=== PATIENT | male | born 1985 | race Caucasian/White ===

== ENCOUNTER 2018-12-09 08:01 | Inpatient (IN) | payer OTHER, SELFPAY ==
[2018-12-09] MEDS ORDERED: Lorazepam 2 MG/ML VIAL ONE ×5 (09:09→12:35)
[2018-12-09] MEDS ORDERED: Multivitamins, Adult 10 ML, Thiamine HCl 100 MG, Folic Acid 1 MG in Dextrose 5 %-0.45 %... IV SCH (09:15)
[2018-12-09 09:27] LABS: Hemoglobin 13.2 g/dL (14.0-18.0); Mean Corpuscular HGB CONC 33.8 g/dL (32.0-36.0); Mean Corpuscular Hemoglobin 36.7 pg (27.0-31.0); RBC Distribution Width 12.7 % (11.5-14.5); Red Blood Cell (RBC) Count 3.59 mill/uL (4.70-6.10); White Blood Cell (WBC) Count 7.6 thou/uL (4.8-10.8)
[2018-12-09 09:42] LABS: Acetaminophen Less than 6.0 mcg/mL (10.0-30.0); Alcohol Less than 10 mg/dL (Less than 10); CK (CPK) 1151 U/L (30-200); Salicylate Less than 8.0 mg/dL (15.0-30.0)
[2018-12-09 09:44] LABS: ALT (SGPT) 26 U/L (8-55); AST (SGOT) 121 U/L (5-34); Albumin 4.2 g/dL (3.5-5.0); Alkaline Phosphatase 121 U/L (40-150); Anion Gap 18 mmol/L (10-20); BUN (Urea Nitrogen) 8 mg/dL (8.9-20.6); Bilirubin, Total 2.4 mg/dL (0.2-1.2); Calc. Creatinine Clearance 0 mL/min (70-130); Calcium 8.6 mg/dL (7.8-10.44); Carbon Dioxide 26 mmol/L (22-29); Chloride 93 mmol/L (98-107); Estimated GFR-MDRD 76; Glucose 81 mg/dL (70-105); Protein, Total 7.2 g/dL (6.0-8.3); Sodium 134 mmol/L (136-145)
[2018-12-09 09:47] LABS: #Lymphocytes 0.7 thou/uL (1.20-3.40); #Monocytes 0.4 thou/uL (0.11-0.59); #Neutrophils 6.5 thou/uL (1.40-6.50); %Basophils 0.3 % (0.0-1.0); %Eosinophils 0.1 % (0.0-10.0); %Lymphocytes 9.4 % (21.0-51.0); %Neutrophils 85.2 % (42.0-75.0); MDiff Complete? YES; Macrocytosis SLIGHT = 6-15 cells (100X) (0-5/hpf); Platelet Count 76 thou/uL (130-400); Platelet Morphology Comment Appears Decreased
[2018-12-09 09:54] LABS: Potassium 2.7 mmol/L (3.5-5.1)
[2018-12-09] MEDS ORDERED: Potassium Chloride 20 MEQ in Premix Bag 1 BAG IVPB SCH (11:00)
[2018-12-09] MEDS ORDERED: Diazepam 5 MG TAB ONE (11:18)
[2018-12-09] MEDS ORDERED: Diazepam 5 MG TAB PO SCH (11:45)
[2018-12-09 12:15] LABS: Magnesium 1.2 mg/dL (1.6-2.6)
[2018-12-09 12:21] LABS: Lavender RECEIVED; Red RECEIVED
--- NOTE | 2018-12-09 13:10 | RAD ---
PORTABLE AP CHEST RADIOGRAPH: Date: 12-09-18 History: Altered mental status. Tremors. Comparison: 04-03-16 FINDINGS: The cardiac silhouette is magnified by projection. The pulmonary vasculature is within normal limits. The lungs are clear. The interstitial and alveolar opacities on the prior study have resolved. Lines and tubes have also been removed when compared to the prior exam. There is a radiopaque and metallic densities overlying the right lateral chest which is likely related to overlying artifact. No other findings. IMPRESSION: No acute cardiopulmonary process. POS: [facility]
--- NOTE | 2018-12-09 13:12 | CT ---
CT BRAIN: Date: 12-09-18 Provided Clinical History: Altered mental status. FINDINGS: Comparison is made with a study dated 08-06-15. The ventricular system appears normal in size and morphology. There is no evidence for intracranial h emorrhage or mass effect. The extracranial soft tissues and osseous structures demonstrate no acute a bnormality. IMPRESSION: No evidence for intracranial hemorrhage or mass effect. POS: [facility]
[2018-12-09] MEDS ORDERED: Magnesium Sulfate 3 GM in Sodium Chloride 0.9% 100 ML IVPB SCH (15:00)
[2018-12-09] MEDS: Sodium Chloride 0.9% 1,000 ML IV SCH ×2 (16:43→19:30)
[2018-12-09] MEDS: Multivitamins, Adult 10 ML, Folic Acid 1 MG, Thiamine HCl 100 MG in Dextrose 5 %-0.45 %... IV SCH (16:44)
[2018-12-09] MEDS: Diazepam 5 MG TAB PO PRN ×2 (19:22→23:13)
[2018-12-09] MEDS: Lorazepam 2 MG/ML VIAL SLOW IVP PRN ×2 (19:23→22:16)
[2018-12-09] MEDS: Famotidine/PF 20 mg/2ml Vial SLOW IVP SCH (20:31)
--- NOTE | 2018-12-10 00:10 | HP ---
CHIEF COMPLAINT: Abnormal behavior. HISTORY OF PRESENT ILLNESS: This patient is a 33-year-old male with a history of alcoholism who was admitted to this facility a couple of years prior with acute alcohol withdrawal. The patient apparently was sober for about a year and a half, but around [place], had some significant psychosocial stressors which caused him to go back to drinking. The patient has increased that of late drinking about 5 whisky drinks and a 12-pack of beer daily. The patient was subsequently brought to the emergency room today by his family because of altered behavior. It is unclear whether the patient was actually unconscious at some point or not. He appeared confused in the emergency department. The patient appeared to be having some hallucinations, grasping for things that were not present, and remained confused. In the emergency department, the patient became significantly tachycardic with a heart rate in the 170s and was subsequently given a large amount of benzodiazepines including Valium 10 mg and lorazepam a total of 9 mg which has settled the patient significantly, but unfortunately the patient is unable to give significant additional history at this time. The patient had some family present in the emergency room at some point. The patient apparently experienced a fall several days prior, apparently down some steps causing some bruising. REVIEW OF SYSTEMS: The review of systems was largely unobtainable given the patient's sedation. PAST MEDICAL HISTORY: Only notable for significant alcoholism. PAST SURGICAL HISTORY: None. SOCIAL HISTORY: The patient apparently is . He has a history of smoking a few cigarettes daily and occasional marijuana. Apparently, quit some time ago. He previously reported experimenting with other drugs, but never anything routinely. ALLERGIES: ERYTHROMYCIN CAUSES A RASH. MEDICATIONS: None. PHYSICAL EXAMINATION: VITAL SIGNS: Initial set of vital signs, BP is 115/92, pulse 162, respirations 23, temperature 98.9. Vital signs at time discharging from the emergency room, BP 124/94, pulse 120, respirations 23, O2 saturation 99% on room air. GENERAL APPEARANCE: The patient is sedated. He is lying supine. He is sleeping and snoring. He does appear to have some obstructive apnea at times as he is not moving any air with auscultation, but is having some chest movement. He is significantly sedated and not responsive to external stimuli. HEENT: The patient does not resist opening his eyes or shining of light to his pupils. His pupils are constricted, symmetric, and minimal reactivity. He has no OP lesions. Dry oral mucosa. NECK: Supple and symmetric without lymphadenopathy, JVD, or bruits. HEART: Regular rate and rhythm without murmurs, gallops, or rubs. LUNGS: Clear to auscultation bilaterally with good chest wall expansion and air exchange. ABDOMEN: Soft, nondistended. Positive bowel sounds. No masses. No organomegaly. EXTREMITIES: No edema. No cyanosis. No clubbing. SKIN: Warm and dry. The patient has some ecchymoses on the right lateral abdomen and the right tibial area of the lower extremity. LABORATORY DATA: White count 7.6, hemoglobin 13.2, platelets 76. Sodium 134, potassium 2.7, chloride 93, CO2 of 26, BUN 8, creatinine 1.13, glucose 81, magnesium is 1.2, total bilirubin 2.4, AST is 121, CK 1151, troponin 0.018, albumin 4.2, lipase 41. TSH 3.16. Salicylates less than 8. Acetaminophen less than 6. Plasma alcohol 10. Chest x-ray, negative. CT brain, negative. IMPRESSION AND PLAN: 1. Acute alcohol withdrawal. The patient has been through alcohol withdrawal in the past. He is back to drinking now. He has had significant dose of benzodiazepines in the emergency department. We will continue with p.r.n. benzodiazepines, continue daily banana bag. We will place him in the IMCU. I have discussed with Pulmonary Critical Care. 2. Hypokalemia. IV repletion. Recheck in the morning. 3. Hypomagnesemia. IV repletion. Recheck labs in the morning. 4. Elevated liver enzymes secondary to alcohol abuse. 5. Macrocytic anemia. The patient likely has B vitamin deficiency secondary to alcoholism, giving banana bag daily. 6. Thrombocytopenia, likely secondary to some chronic liver disease. We will continue to monitor. 7. Mild rhabdomyolysis secondary to a recent fall. The patient will have gentle hydration, but the numbers do not appear to be significant enough to be worrisome. Job ID: [id number]
[2018-12-10] MEDS: Lorazepam 2 MG/ML VIAL SLOW IVP PRN ×4 (00:23→20:08)
[2018-12-10] MEDS ORDERED: Lorazepam 2 MG/ML VIAL SLOW IVP SCH ×2 (01:02→11:00)
[2018-12-10] MEDS: Sodium Chloride 0.9% 1,000 ML IV SCH (02:30)
--- NOTE | 2018-12-10 03:26 | CON ---
DATE OF CONSULTATION: 12/09/2018 HISTORY OF PRESENT ILLNESS: Mr. Campbell is a 33-year-old male, who was admitted after his mother felt that he was not himself. He has a long history of heavy alcohol and substance abuse. He was agitated when he arrived and was having tremors. He has been drinking heavily every day until this morning, but he does not know that today is Friday. He drinks at least a quarter whiskey a day, he tells me plus beer. He has received Valium and Ativan in the emergency department, has finally calmed down. PAST MEDICAL HISTORY: Remarkable for hypertension. SOCIAL HISTORY: Heavy drinker as mentioned. Used to smoke marijuana according to records. He is a tobacco user. He admits that he drinks all day long. ALLERGIES: HE REPORTS ALLERGIES TO ERYTHROMYCIN. FAMILY HISTORY: Non contributory. REVIEW OF SYSTEMS: 10 point review of systems completed, unremarkable. MEDICATIONS: He is on no medications prior to admission. PHYSICAL EXAMINATION: GENERAL: He had a bloodshot eyes. He was evaluated in the emergency room. Focused on me for very long. VITAL SIGNS: Afebrile. Blood pressure 101/65, heart rate just over 100. HEENT: Pupils are equal. NECK: Supple without lymphadenopathy. LUNGS: Clear. HEART: Regular rhythm. No gallop. ABDOMEN: Soft and nontender. EXTREMITIES: Without clubbing, cyanosis, or edema. NEURO: Grossly nonfocal, but he cannot really cooperate with neuro exam. He does move all extremities equally. DIAGNOSTIC STUDIES: Chest radiograph is clear. LABORATORY DATA: White count 7.6, hemoglobin 13.2, and platelets 76. Sodium 134, potassium 2.7, chloride 93, bicarb 26, BUN 8, and creatinine 1.13. Magnesium and potassium low as expected with his alcoholism. He probably has very poor nutritional intake. Magnesium has been replaced and is up to 2.1. AST is 121, ALT is 26. IMPRESSION: 1. Alcohol withdrawal, blood alcohol is less than 10. 2. Alcoholic liver disease. 3. Thrombocytopenia secondary to alcoholism. 4. Hypomagnesemia and hypokalemia secondary to alcoholism. Admitted to the intermediate care unit. We will be happy to follow the other physicians caring for him. TIME SPENT: This was a 70-minute consult, with greater than 50% of the time was spent on the unit coordinating care. Job ID: [id number] [facility]
[2018-12-10] MEDS: Diazepam 5 MG TAB PO PRN (03:52)
[2018-12-10] MEDS ORDERED: Diazepam 5 MG TAB PO PRN (04:00)
[2018-12-10 04:45] LABS: #Eosinphils 0.1 thou/uL (0.0-0.7); #Lymphocytes 0.9 thou/uL (1.20-3.40); #Monocytes 0.4 thou/uL (0.11-0.59); #Neutrophils 4.5 thou/uL (1.40-6.50); %Basophils 0.4 % (0.0-1.0); %Eosinophils 1.1 % (0.0-10.0); %Lymphocytes 15.1 % (21.0-51.0); %Neutrophils 76.4 % (42.0-75.0); Hemoglobin 11.3 g/dL (14.0-18.0); Mean Corpuscular HGB CONC 32.3 g/dL (32.0-36.0); Mean Platelet Volume 8.1 fL (7.4-10.4); Platelet Count 82 thou/uL (130-400); RBC Distribution Width 12.8 % (11.5-14.5); Red Blood Cell (RBC) Count 3.14 mill/uL (4.70-6.10); White Blood Cell (WBC) Count 5.9 thou/uL (4.8-10.8)
[2018-12-10 05:05] LABS: Anion Gap 19 mmol/L (10-20); BUN (Urea Nitrogen) 7 mg/dL (8.9-20.6); Calc. Creatinine Clearance 194 mL/min (70-130); Calcium 7.3 mg/dL (7.8-10.44); Carbon Dioxide 19 mmol/L (22-29); Chloride 99 mmol/L (98-107); Estimated GFR-MDRD Greater than 90; Glucose 70 mg/dL (70-105); Potassium 2.8 mmol/L (3.5-5.1); Sodium 134 mmol/L (136-145)
[2018-12-10] MEDS: Potassium Chloride 20 MEQ in Premix Bag 1 BAG IVPB SCH ×2 (06:19→08:54)
[2018-12-10] MEDS ORDERED: Potassium Chloride 40 MEQ in Premix Bag 1 BAG IVPB SCH (07:15)
[2018-12-10] MEDS ORDERED: Potassium Chloride 20 MEQ in Premix Bag 1 BAG IVPB SCH (07:30)
[2018-12-10] MEDS: Famotidine/PF 20 mg/2ml Vial SLOW IVP SCH ×2 (08:55→21:50)
[2018-12-10] MEDS: Enoxaparin Sodium 40 MG/0.4 ML SYRINGE SC SCH (08:55)
[2018-12-10] MEDS ORDERED: Haloperidol Lactate 5 MG/ML VIAL IM SCH (11:00)
[2018-12-10] MEDS ORDERED: Propofol 1,000 MG/100 ML VIAL IV ONE (13:27)
[2018-12-10] MEDS ORDERED: Vecuronium 10 MG VIAL ONE (14:21)
[2018-12-10 15:01] LABS: Actual Bicarbonate (HCO3a) 21.8 mEq/L (22-28); Base Excess (BEa) -1.4 mEq/L (-2.0 to +3.0); CO2 Tension 31.7 mmHg (35.0-45.0); Calcium, Ionized 1.01 mmol/L (1.12-1.30); Hemoglobin (Hb) 11.5 g/dL (14.0-18.0); O2 Tension (PaO2) 129.3 mmHg (80.0-100.0); Potassium - ABG Lab 2.76 mmol/L (3.70-5.30); pH, Arterial 7.46 (7.35-7.45)
[2018-12-10 15:04] LABS: ALV-art Gradient 44.975 (0-20); Puncture Site LRA
--- NOTE | 2018-12-10 15:42 | RAD ---
CHEST 1 VIEW: INDICATION: History of intubation. COMPARISON: Prior exam dated 12/09/2018. FINDINGS: The patient has been intervally intubated with ET tube tip seen at the level of the thoracic inlet. Gastric catheter projects beyond the left hemidiaphragm into the region of the fundus. The lungs are clear. Heart size is normal. No pleural effusion or pneumothorax is evident. IMPRESSION: Intubation and gastric catheter placement. No definite acute cardiopulmonary abnormality. POS: [facility]
[2018-12-10] MEDS: Multivitamins, Adult 10 ML, Folic Acid 1 MG, Thiamine HCl 100 MG in Dextrose 5 %-0.45 %... IV SCH (15:55)
[2018-12-10] MEDS ORDERED: Vecuronium 10 MG VIAL IV SCH (17:00)
[2018-12-10] MEDS ORDERED: Propofol 1,000 MG/100 ML VIAL IV SCH ×2 (17:00→17:15)
--- NOTE | 2018-12-10 17:09 | PRG ---
DATE OF SERVICE: 12/10/2018 SUBJECTIVE: Sea Campbell, in spite of high doses of benzodiazepines, continues to be very agitated all over the bed, requiring restraints, having intermittent tachycardia up to a rate of 190. I have recommended him to transfer to critical care unit for intubation and deep sedation. He was transferred over to Critical Care. His blood pressure was in the 120s to 140s at that time. He was given 20 mg of etomidate once we were ready for intubation. A bite block was placed in his mouth. Bronchoscope was advanced and his vocal cords were visualized. Bronchoscope was advanced through his cords and he was endotracheally intubated. The tube was secured above the main clemencia. The scope was withdrawn. He was then sedated with 100 mg of propofol and paralyzed with 10 mg of vecuronium. We started a generous dose of propofol drip to hopefully get him through his alcohol withdrawal. Chest radiograph shows no infiltrates and the orogastric tube in his stomach. He can be started on feeds today. He was connected to mechanical ventilation. Blood gas shows pH 7.46, pCO2 of 31, pO2 of 129 on 30% with a rate of 14, tidal volume of 500. IMPRESSION: Severe alcohol withdrawal/delirium tremens. PLAN: Mechanical ventilation and sedation until he is through the alcohol withdrawal. CRITICAL CARE TIME: 35 minutes. Job ID: [id number]
--- NOTE | 2018-12-10 18:01 | PDOC.PN ---
- Subjective Encounter Start Date: 12/10/18 Encounter Start Time: 11:20 Patient has had undulating LOC and delerium. Requiring a significant amount of benzodiazepine and sedation. Seeing people in the room who are not there. Pulled out multiple IV's and required restraints. - Objective Resuscitation Status - Order Detail: 12/09/18 14:31 Resuscitation Status Routine Resuscitation Status: FULL: Full Resuscitation Vital Signs & Weight: Vital Signs (12 hours) Temp Pulse Resp Pulse Ox 12/10/18 16:00 14 12/10/18 14:39 132 H 12/10/18 14:30 99 12/10/18 14:15 99.2 F 14 99 12/10/18 11:45 99.6 F 12/10/18 07:35 98 12/10/18 07:06 98.3 F Weight Admit Weight 138 lb 14.259 oz Weight 189 lb Most Recent Monitor Data Heart Rate from ECG 94 NIBP 94/56 NIBP BP-Mean 68 Respiration from ECG 14 SpO2 100 I&O: 12/09/18 12/10/18 12/11/18 06:59 06:59 06:59 Output Total 700 385 Balance -700 -385 Result Diagrams: 12/10/18 04:29 12/10/18 04:29 Phys Exam - Physical Examination Constitutional: NAD Respiratory: no wheezing, no rales, no rhonchi, clear to auscultation bilateral Cardiovascular: RRR, no significant murmur, no rub HR 170's with any signif movement. Gastrointestinal: soft, non-tender, no distention, positive bowel sounds Musculoskeletal: no edema Deviation from normal: Intermittently agitated and delerious. Generally calm at exam. Dx/Plan (1) Acute hypoxemic respiratory failure Code(s): J96.01 - ACUTE RESPIRATORY FAILURE WITH HYPOXIA Status: Acute Comment: extubated 04/03 (2) Hypokalemia Code(s): E87.6 - HYPOKALEMIA Status: Acute (3) Severe alcohol withdrawal delirium Code(s): F10.231 - ALCOHOL DEPENDENCE WITH WITHDRAWAL DELIRIUM Status: Acute (4) Chronic alcoholism Code(s): F10.20 - ALCOHOL DEPENDENCE, UNCOMPLICATED Status: Chronic - Plan * Continuing BZD's, B-vitamins * May need more aggressive sedation and intubation through more severe stages of DT's.
[2018-12-10] MEDS ORDERED: Propofol 1,000 MG/100 ML VIAL IV PRN (21:11)
[2018-12-10] MEDS ORDERED: Morphine 2 MG/ML SYRINGE SLOW IVP PRN (21:11)
[2018-12-10] MEDS ORDERED: Fentanyl BOLUS 250 ML IVPB PRN (21:11)
[2018-12-10] MEDS ORDERED: DISCONTINUE PREVIOUS NARCOTIC PAIN MEDICATIONS AND BENZODIAZEPINES FS SCH (21:11)
[2018-12-10] MEDS ORDERED: Propofol BOLUS 1,000 MG/100 ML VIAL IV PRN (21:11)
[2018-12-10] MEDS: fentaNYL Citrate/PF 2,000 MCG in Sodium Chloride 0.9% 60 ML IV SCH (21:35)
[2018-12-10] MEDS: Propofol 1,000 MG/100 ML VIAL IV PRN (21:52)
[2018-12-11] MEDS: Acetaminophen 325 MG TAB PO PRN ×3 (02:28→16:51)
[2018-12-11 06:53] LABS: ALV-art Gradient 111.525 (0-20); Actual Bicarbonate (HCO3a) 24.3 mEq/L (22-28); Base Excess (BEa) 1.4 mEq/L (-2.0 to +3.0); CO2 Tension 32.7 mmHg (35.0-45.0); Calcium, Ionized 1.01 mmol/L (1.12-1.30); Carboxyhemoglobin (COHb) 0.4 gm% (0.0-3.0); Hemoglobin (Hb) 11.3 g/dL (14.0-18.0); O2 Tension (PaO2) 61.5 mmHg (80.0-100.0); Potassium - ABG Lab 2.66 mmol/L (3.70-5.30); Puncture Site RRA; pH, Arterial 7.49 (7.35-7.45)
[2018-12-11] MEDS: Propofol 1,000 MG/100 ML VIAL IV PRN ×2 (07:00→11:55)
[2018-12-11] MEDS: Lorazepam 2 MG/ML VIAL SLOW IVP PRN ×6 (08:16→21:47)
[2018-12-11] MEDS: Famotidine/PF 20 mg/2ml Vial SLOW IVP SCH ×2 (08:24→21:47)
--- NOTE | 2018-12-11 09:43 | PRG ---
DATE OF SERVICE: 12/11/2018 SUBJECTIVE: Sea Campbell is sedated and mechanically ventilated. OBJECTIVE: VITAL SIGNS: He is afebrile, heart rate 76, blood pressure 120/73, respiratory rate 17. LUNGS: Clear. HEART: Regular rhythm. S1 and S2 normal. ABDOMEN: Soft and nontender. EXTREMITIES: Without clubbing, cyanosis, or edema. LABORATORY DATA: He had no lab today. I have ordered lab. IMPRESSION: Status post intubation for severe delirium tremens, not responding to significant doses of benzodiazepines. He appears to be stable at this point in time. He has some mild resting tachycardia as expected. Continue with supportive care. He probably will be through the window of alcohol withdrawal for another 2 to 3 days. Critical care time is 35 minutes. Job ID: [id number] [facility]
[2018-12-11 11:11] LABS: #Basophils 0.1 thou/uL (0.0-0.2); #Lymphocytes 0.8 thou/uL (1.20-3.40); #Monocytes 0.3 thou/uL (0.11-0.59); #Neutrophils 2.5 thou/uL (1.40-6.50); %Basophils 1.6 % (0.0-1.0); %Eosinophils 0.9 % (0.0-10.0); %Lymphocytes 22.7 % (21.0-51.0); %Monocytes 8.2 % (0.0-10.0); %Neutrophils 66.6 % (42.0-75.0); Hemoglobin 11.8 g/dL (14.0-18.0); Mean Corpuscular HGB CONC 32.2 g/dL (32.0-36.0); Mean Corpuscular Hemoglobin 36.2 pg (27.0-31.0); Platelet Count 104 thou/uL (130-400); Red Blood Cell (RBC) Count 3.26 mill/uL (4.70-6.10); White Blood Cell (WBC) Count 3.7 thou/uL (4.8-10.8)
[2018-12-11 11:26] LABS: Anion Gap 14 mmol/L (10-20); BUN (Urea Nitrogen) 5 mg/dL (8.9-20.6); Calc. Creatinine Clearance 220 mL/min (70-130); Calcium 7.5 mg/dL (7.8-10.44); Carbon Dioxide 22 mmol/L (22-29); Chloride 100 mmol/L (98-107); Estimated GFR-MDRD Greater than 90; Glucose 81 mg/dL (70-105); Sodium 133 mmol/L (136-145)
[2018-12-11 11:30] LABS: Potassium 2.8 mmol/L (3.5-5.1)
[2018-12-11] MEDS: fentaNYL Citrate/PF 2,000 MCG in Sodium Chloride 0.9% 60 ML IV SCH (11:30)
[2018-12-11] MEDS: Enoxaparin Sodium 40 MG/0.4 ML SYRINGE SC SCH (11:55)
[2018-12-11 12:04] LABS: Phosphorus 1.5 mg/dL (2.3-4.7)
[2018-12-11] MEDS: Piperacillin/Tazobactam 3.375 GM in Sodium Chloride 0.9% 100 ML IVPB SCH ×3 (12:07→23:35)
[2018-12-11] MEDS ORDERED: Magnesium Sulfate 4 GM in Sodium Chloride 0.9% 250 ML 250 ML IVPB SCH (12:30)
[2018-12-11] MEDS ORDERED: Potassium Phosphate 30 MMOL in Sodium Chloride 0.9% 500 ML IVPB SCH (12:30)
[2018-12-11 13:23] LABS: Bilirubin Moderate (Negative); Blood, Urine Small (Negative); Clarity TURBID (Clear); Glucose, Urine (Dipstick) Negative (Negative); Leukocyte Large (Negative); Nitrite Positive (Negative); Protein, Urine (Dipstick) 30 mg/dL (Neg-Trace); Specific Gravity, Urine 1.024 (1.002-1.036); pH, Urine 5.5 (5.0-9.0)
[2018-12-11 13:25] LABS: Bacteria/HPF 4+ HPF (None Seen); Pathc Cast-AUWi Flag 1.05 (0-2.49); Squamous Epithelial None Seen HPF (0-3)
[2018-12-11 13:29] LABS: Yeast-AUWi Flag 116.8 (0-25.0)
[2018-12-11 13:38] LABS: Hyaline Casts/LPF 0-3 HYALINE CAST LPF (0-3 Hyaline); Renal Epithelial 0-3 HPF (0-3)
[2018-12-11] MEDS: Multivitamins, Adult 10 ML, Folic Acid 1 MG, Thiamine HCl 100 MG in Dextrose 5 %-0.45 %... IV SCH (14:41)
[2018-12-11] MEDS ORDERED: Sodium Chloride 0.9% 500 ML IV SCH (17:15)
[2018-12-11] MEDS: Lactated Ringer's 1,000 ML IV SCH ×2 (18:10→21:49)
--- NOTE | 2018-12-11 23:00 | PDOC.PN ---
- Subjective Encounter Start Date: 12/11/18 Encounter Start Time: 14:45 Intubated. - Objective Resuscitation Status - Order Detail: 12/09/18 14:31 Resuscitation Status Routine Resuscitation Status: FULL: Full Resuscitation Vital Signs & Weight: Vital Signs (12 hours) Temp Pulse Resp BP Pulse Ox 12/11/18 22:00 14 12/11/18 20:00 99.2 F 20 79/43 L 97 12/11/18 18:00 103.2 F H 14 12/11/18 17:00 103.0 F H 12/11/18 16:10 93 L 12/11/18 16:00 102.1 F H 16 12/11/18 15:00 102.0 F H 12/11/18 14:00 14 12/11/18 13:00 102.7 F H 12/11/18 12:52 130 H 118/68 12/11/18 12:00 13 115/77 Weight Admit Weight 189 lb Weight 189 lb Most Recent Monitor Data Heart Rate from ECG 79 NIBP 76/48 NIBP BP-Mean 57 Respiration from ECG 14 SpO2 95 I&O: 12/10/18 12/11/18 12/12/18 06:59 06:59 06:59 Intake Total 208.1 3962.9 Output Total 700 675 686 Balance -700 -466.9 3276.9 Result Diagrams: 12/11/18 10:57 12/11/18 10:57 Phys Exam - Physical Examination Constitutional: NAD Intubated. Will awaken with modest stim. Respiratory: no wheezing, no rales, no rhonchi Cardiovascular: RRR, no significant murmur, no rub Gastrointestinal: soft, non-tender, no distention, positive bowel sounds Musculoskeletal: no edema Sedated. Awakens and still a little agitated. Dx/Plan (1) Acute hypoxemic respiratory failure Code(s): J96.01 - ACUTE RESPIRATORY FAILURE WITH HYPOXIA Status: Acute Comment: extubated 04/03 (2) Hypokalemia Code(s): E87.6 - HYPOKALEMIA Status: Acute (3) Severe alcohol withdrawal delirium Code(s): F10.231 - ALCOHOL DEPENDENCE WITH WITHDRAWAL DELIRIUM Status: Acute (4) Chronic alcoholism Code(s): F10.20 - ALCOHOL DEPENDENCE, UNCOMPLICATED Status: Chronic (5) Tachycardia Code(s): R00.0 - TACHYCARDIA, UNSPECIFIED Status: Acute (6) Fever Code(s): R50.9 - FEVER, UNSPECIFIED Status: Acute - Plan * Remains intubated. * Sedated. Transitioning to Precedex and weaning propafol to manage relative hypotension. * Continue to maintain sedation and control airway until the DT's resolve. * New onset of fever. Zosyn added. Risk for aspiration pneumonia.
[2018-12-11] MEDS: Sodium Chloride 0.9% 1,000 ML IV SCH (23:36)
[2018-12-12 05:02] LABS: Anion Gap 14 mmol/L (10-20); BUN (Urea Nitrogen) 9 mg/dL (8.9-20.6); Calc. Creatinine Clearance 166 mL/min (70-130); Calcium 6.6 mg/dL (7.8-10.44); Carbon Dioxide 17 mmol/L (22-29); Chloride 107 mmol/L (98-107); Estimated GFR-MDRD Greater than 90; Glucose 85 mg/dL (70-105); Magnesium 1.6 mg/dL (1.6-2.6); Potassium 3.8 mmol/L (3.5-5.1); Sodium 134 mmol/L (136-145)
[2018-12-12] MEDS: Lorazepam 2 MG/ML VIAL SLOW IVP PRN ×8 (05:05→21:47)
[2018-12-12 05:06] LABS: Phosphorus 3.2 mg/dL (2.3-4.7)
[2018-12-12] MEDS: Piperacillin/Tazobactam 3.375 GM in Sodium Chloride 0.9% 100 ML IVPB SCH ×4 (05:07→23:21)
[2018-12-12 05:14] LABS: Band 32 % (5-11); Eosinophils 1 % (0-10); Hemoglobin 11.7 g/dL (14.0-18.0); Lymphocytes 17 % (21-51); MDiff Complete? YES; Macrocytosis SLIGHT = 6-15 cells (100X) (0-5/hpf); Mean Corpuscular HGB CONC 33.3 g/dL (32.0-36.0); Mean Corpuscular Hemoglobin 37.5 pg (27.0-31.0); Mean Platelet Volume 6.8 fL (7.4-10.4); Metamyelocyte 3 % (0-0); Monocytes 8 % (0-10); Neutrophil 37 % (42-75); Platelet Count 125 thou/uL (130-400); Platelet Morphology Comment Appears Decreased; RBC Distribution Width 12.7 % (11.5-14.5); Reactive Lymphocytes 2 % (0-10); Red Blood Cell (RBC) Count 3.13 mill/uL (4.70-6.10); White Blood Cell (WBC) Count 6.2 thou/uL (4.8-10.8)
--- NOTE | 2018-12-12 07:49 | RAD ---
CHEST 1 VIEW: Date: 12/12/18 HISTORY: Dyspnea. Follow-up. COMPARISON: 12/10/18. FINDINGS: Cardiac silhouette is magnified by projection. Pulmonary vasculature upper limits of normal. Mild dean ateral perihilar infiltrates have developed with more prominent consolidation in the right upper lobe , including air bronchograms. Mediastinum remains midline. Lines and tubes are unchanged in position. No evidence of pneumothorax. IMPRESSION: Bilateral perihilar and right upper lobe infiltrates. Clinical correlation regarding other signs and symptoms of developing pneumonitis versus only pulmonary edema is required. POS: [facility]
[2018-12-12] MEDS: Famotidine/PF 20 mg/2ml Vial SLOW IVP SCH ×2 (08:29→21:47)
[2018-12-12] MEDS: Enoxaparin Sodium 40 MG/0.4 ML SYRINGE SC SCH (08:31)
--- NOTE | 2018-12-12 09:18 | PRG ---
DATE OF SERVICE: 12/12/2018 SERVICE: Pulmonary Medicine. INTERVAL HISTORY: Overnight, the patient spiked a temperature to 103. We pancultured him. E. coli is already growing. He was empirically started on Zosyn, which we will continue. He has been agitated through the day. He denies any current chest pain, fevers, or chills. He required significant amount of sedation to stay comfortable however. Without stimulation, he falls back to sleep within 3 seconds. PHYSICAL EXAMINATION: VITAL SIGNS: Current temperature of 100.9, T-max 103.2, pulse 95, blood pressure 94/57, respirations 18, saturation 93% on 41% FiO2 and a PEEP of 5. GENERAL: The patient is intubated and sedated. HEENT: Normal normocephalic, atraumatic. Sclerae white. Conjunctivae pink. Oral mucosa is moist without lesions. LUNGS: Decent air entry. No prolonged expiratory phase or rhonchi appreciated. No wheezing. HEART: Normal rate, regular. ABDOMEN: Soft, nontender nondistended. Bowel sounds are positive. MUSCULOSKELETAL: No cyanosis or clubbing. EXTREMITIES: No pitting in the bilateral lower extremities. NEUROLOGIC: Grossly nonfocal. LABORATORY DATA: WBC 6.2, hemoglobin 11.3, platelets 125,000 and rebounding. Neutrophils are 37% on top of 32% bands. Basic metabolic profile is essentially unremarkable. His magnesium has improved to 1.6, and phosphorus has improved to 3.2. Blood cultures x2 and respiratory cultures are unremarkable. IMAGING: Chest x-ray demonstrates bilateral perihilar and right upper lobe infiltrate. Endotracheal tube and central line are in in good position. ASSESSMENT: 1. Acute hypoxic respiratory failure. 2. Community-acquired pneumonia secondary to likely gram-negative veronique. 3. Alcohol abuse. 4. Metabolic encephalopathy. 5. Severe sepsis. 6. Delirium tremens, stabilizing. DISCUSSION AND PLAN: We will continue our Precedex for sedation. This will be weaned away as tolerated. I have made multiple adjustments to his ventilator in order to improve on his very significant dyssynchrony. He seems to like pressure control ventilation the most. Pulmonary Critical Care will continue to follow along, but at this point, he is not ready for extubation. We will continue our empiric antibiotics and direct our sensitivities to anything that we culture in the sputum. The predominant organisms were Streptococcus, and gram-negative rods. Zosyn should cover this. Moderate gram-positive cocci and clusters were also noted. As such, I will empirically initiate vancomycin for the time being, though he has no reason to have a sensitive or a resistant organism. CRITICAL CARE TIME: 30 minutes. Job ID: [id number]
[2018-12-12] MEDS ORDERED: Vancomycin HCl 1.5 GM in Sodium Chloride 0.9% 250 ML 300 ML IVPB SCH (10:00)
[2018-12-12] MEDS ORDERED: Magnesium Sulfate 4 GM in Sodium Chloride 0.9% 250 ML 250 ML IVPB SCH (10:30)
--- NOTE | 2018-12-12 14:01 | PDOC.PN ---
- Subjective Encounter Start Date: 12/12/18 Encounter Start Time: 10:00 Intubated and sedated. - Objective Resuscitation Status - Order Detail: 12/09/18 14:31 Resuscitation Status Routine Resuscitation Status: FULL: Full Resuscitation Vital Signs & Weight: Vital Signs (12 hours) Temp Pulse Resp BP Pulse Ox 12/12/18 13:06 85 92/52 L 12/12/18 12:00 99.9 F H 17 12/12/18 10:17 90 98/55 L 12/12/18 10:00 0 L 15 12/12/18 09:16 98 104/65 12/12/18 08:00 15 12/12/18 07:17 108 H 112/62 12/12/18 07:16 91 L 12/12/18 07:00 100.9 F H 12/12/18 06:00 23 H 12/12/18 04:00 100.0 F H 26 H 107/78 12/12/18 02:00 17 Weight Admit Weight 189 lb Weight 189 lb Most Recent Monitor Data Heart Rate from ECG 83 NIBP 92/52 NIBP BP-Mean 65 Respiration from ECG 13 SpO2 95 I&O: 12/11/18 12/12/18 12/13/18 06:59 06:59 06:59 Intake Total 208.1 8187.2 0 Output Total 675 1031 300 Balance -466.9 7156.2 -300 Result Diagrams: 12/12/18 04:28 12/12/18 04:28 Phys Exam - Physical Examination Constitutional: NAD Intubated and sedated. Respiratory: no wheezing, no rhonchi Right sided rales Cardiovascular: RRR, no significant murmur, no rub Gastrointestinal: soft, no distention, positive bowel sounds Musculoskeletal: no edema Psychiatric: normal affect, A&O x 3 Dx/Plan (1) Acute hypoxemic respiratory failure Code(s): J96.01 - ACUTE RESPIRATORY FAILURE WITH HYPOXIA Status: Acute Comment: extubated 04/03 (2) Hypokalemia Code(s): E87.6 - HYPOKALEMIA Status: Acute (3) Severe alcohol withdrawal delirium Code(s): F10.231 - ALCOHOL DEPENDENCE WITH WITHDRAWAL DELIRIUM Status: Acute (4) Chronic alcoholism Code(s): F10.20 - ALCOHOL DEPENDENCE, UNCOMPLICATED Status: Chronic (5) Tachycardia Code(s): R00.0 - TACHYCARDIA, UNSPECIFIED Status: Acute (6) Fever Code(s): R50.9 - FEVER, UNSPECIFIED Status: Acute (7) Pneumonia Code(s): J18.9 - PNEUMONIA, UNSPECIFIED ORGANISM Status: Acute Comment: on Atbx (8) UTI (urinary tract infection) Status: Acute (9) Acute metabolic encephalopathy Code(s): G93.41 - METABOLIC ENCEPHALOPATHY Status: Acute - Plan * Pulm CC following and managing vent. * Has pneumonia with Staph aureus in sputum * Has UTI with Staph sp in urine. * Continue Zosyn. Vanc added as well. * Has some growth of GNR - Zosyn. * Continue sedation and vent support until he clears the DT's better.
[2018-12-12] MEDS: fentaNYL Citrate/PF 2,000 MCG in Sodium Chloride 0.9% 60 ML IV SCH (15:07)
[2018-12-12] MEDS: Propofol 1,000 MG/100 ML VIAL IV PRN ×2 (15:20→22:39)
[2018-12-12] MEDS: Vancomycin HCl 1.5 GM in Sodium Chloride 0.9% 250 ML 300 ML IVPB SCH (17:25)
[2018-12-12] MEDS ORDERED: Vancomycin HCl 1 GM in Premix Bag 1 BAG IVPB SCH (21:00)
[2018-12-12] MEDS: Sodium Chloride 0.9% 1,000 ML IV SCH (23:21)
[2018-12-13] MEDS: Vancomycin HCl 1.5 GM in Sodium Chloride 0.9% 250 ML 300 ML IVPB SCH (01:25)
[2018-12-13] MEDS: Lorazepam 2 MG/ML VIAL SLOW IVP PRN ×8 (01:26→19:41)
[2018-12-13 05:09] LABS: Anion Gap 13 mmol/L (10-20); BUN (Urea Nitrogen) 8 mg/dL (8.9-20.6); Calc. Creatinine Clearance 213 mL/min (70-130); Carbon Dioxide 17 mmol/L (22-29); Chloride 111 mmol/L (98-107); Estimated GFR-MDRD Greater than 90; Glucose 90 mg/dL (70-105); Potassium 3.9 mmol/L (3.5-5.1); Sodium 137 mmol/L (136-145)
[2018-12-13 05:47] LABS: Band 36 % (5-11); Eosinophils 2 % (0-10); Hemoglobin 10.2 g/dL (14.0-18.0); Lymphocytes 10 % (21-51); MDiff Complete? YES; Macrocytosis SLIGHT = 6-15 cells (100X) (0-5/hpf); Mean Corpuscular HGB CONC 33.5 g/dL (32.0-36.0); Mean Corpuscular Hemoglobin 37.3 pg (27.0-31.0); Mean Platelet Volume 8.1 fL (7.4-10.4); Metamyelocyte 4 % (0-0); Monocytes 9 % (0-10); Neutrophil 39 % (42-75); Platelet Count 132 thou/uL (130-400); Platelet Morphology Comment Appears Adequate; RBC Distribution Width 12.9 % (11.5-14.5); Red Blood Cell (RBC) Count 2.74 mill/uL (4.70-6.10); White Blood Cell (WBC) Count 6.5 thou/uL (4.8-10.8)
[2018-12-13] MEDS: Piperacillin/Tazobactam 3.375 GM in Sodium Chloride 0.9% 100 ML IVPB SCH (06:02)
[2018-12-13] MEDS: Enoxaparin Sodium 40 MG/0.4 ML SYRINGE SC SCH (09:24)
[2018-12-13] MEDS: Thiamine 100 MG TAB PO SCH (09:24)
[2018-12-13] MEDS: Folic Acid 1 MG TAB PO SCH (09:24)
[2018-12-13] MEDS: Famotidine/PF 20 mg/2ml Vial SLOW IVP SCH ×2 (09:24→21:45)
--- NOTE | 2018-12-13 09:47 | PRG ---
DATE OF SERVICE: 12/13/2018 SERVICE: Pulmonary Medicine. INTERVAL HISTORY: The patient is doing really well from a mentation standpoint. He got started on Precedex yesterday. With this medication, his heart rate is down, his blood pressure is actually a little bit low. That being said, he does not have any end-organ damage that accompanies that. He cannot provide any additional elements of the history at this point. He is more cool, calm, and collected. He is still requiring some p.r.n. doses of Ativan, but no longer on propofol or fentanyl. Nursing reports no overnight events. PHYSICAL EXAMINATION: VITAL SIGNS: Afebrile, pulse 87, blood pressure 114/68, respirations 15, and saturation 99% on 27% FiO2 and a PEEP of 5. GENERAL: The patient is intubated and sedated. HEENT: Normocephalic and atraumatic. Sclerae white. Conjunctivae pink. Oral mucosa is moist without lesions. LUNGS: Decent air entry. There is no prolonged expiratory phase. Dependent crackles are present. Some rhonchi are there, but clear with cough. HEART: Normal rate, regular. ABDOMEN: Soft, nontender, and nondistended. Bowel sounds are hypoactive. GENITOURINARY: Marshall catheter in place. NEUROLOGIC: Grossly nonfocal. LABORATORY DATA: WBC 6.5, hemoglobin 10.2, and platelets 132,000, beautifully responding. Basic metabolic profile is essentially unremarkable. The chloride is 111, sodium 137 and gently up-trending. Creatinine is stable at 0.61, calcium 7.0 and improving. Urine culture is growing staph species. Sputum culture is also growing Staph aureus. This is a pansensitive organism. That being said, it is resistant to piperacillin. Blood cultures x2 are otherwise unremarkable. ASSESSMENT: 1. Acute hypoxic respiratory failure. 2. Community-acquired pneumonia secondary to methicillin-susceptible Staphylococcus aureus. 3. Alcohol abuse. 4. Metabolic encephalopathy. 5. Severe sepsis. 6. Delirium tremens. 7. Urinary tract infection secondary to staph. DISCUSSION AND PLAN: It is likely that the only way that the staph got to the urine was through hematogenous spread. As such, I do suspect that the patient had at least transient bacteremia secondary to Staph aureus. I am going to change the antibiotics up ever so slightly in order to cover the offending organism and currently treat it as though it was a hematogenous event. Echocardiogram will be performed to see whether or not there is any valvular vegetations, although I doubt that is the case. At this point, the only thing that precludes extubation is his mentation. This has improved significantly on Precedex, but he still requires a significant dose in order to keep him comfortable. Pulmonary Critical Care will continue to follow along. We will repeat a chest x-ray in the morning. Several adjustments have been made to the ventilator in order to return more work of breathing over to the patient. CRITICAL CARE TIME: 30 minutes. Job ID: [id number]
[2018-12-13] MEDS: Sodium Chloride 0.45% 1,000 ML IV SCH (10:15)
[2018-12-13] MEDS ORDERED: Senokot 8.6 MG TAB PO SCH (10:15)
[2018-12-13] MEDS: fentaNYL Citrate/PF 2,000 MCG in Sodium Chloride 0.9% 60 ML IV SCH (10:27)
[2018-12-13] MEDS: Oxacillin 2 GM in Sodium Chloride 0.9% 100 ML IVPB SCH ×4 (10:28→21:45)
--- NOTE | 2018-12-13 10:41 | RAD ---
CHEST 1 VIEW: Date: 12/13/18 HISTORY: Intubation. COMPARISON: 12/12/18. FINDINGS: Cardiac silhouette is magnified by projection and upper limits of normal. Pulmonary vasculature remai ns slightly engorged. Bilateral perihilar infiltrate and mild widespread increased opacity and more f ocal infiltrate in the right upper lobe are similar in appearance to the prior study. Lines and tubes appear unchanged in position. No evidence of pneumothorax. IMPRESSION: Right upper lobe infiltrate and other scattered mild infiltrates are stable. POS: [facility]
--- NOTE | 2018-12-13 15:37 | PDOC.PN ---
- Subjective Encounter Start Date: 12/13/18 Encounter Start Time: 15:35 Sedated, intubated, ventilated. - Objective Resuscitation Status - Order Detail: 12/09/18 14:31 Resuscitation Status Routine Resuscitation Status: FULL: Full Resuscitation Vital Signs & Weight: Vital Signs (12 hours) Temp Pulse Resp BP Pulse Ox 12/13/18 14:12 13 12/13/18 13:13 89 108/68 12/13/18 12:03 12 12/13/18 11:02 98.8 F 12/13/18 10:46 82 98/61 12/13/18 10:06 11 L 12/13/18 08:59 90 90/48 L 12/13/18 08:00 12 12/13/18 07:24 87 114/68 12/13/18 07:20 98 12/13/18 07:14 98.0 F 12/13/18 06:00 15 12/13/18 04:00 98.3 F 14 Weight Admit Weight 189 lb Weight 71 lb 6.4 oz Most Recent Monitor Data Heart Rate from ECG 92 NIBP 86/45 NIBP BP-Mean 58 Respiration from ECG 10 SpO2 94 I&O: 12/12/18 12/13/18 12/14/18 06:59 06:59 06:59 Intake Total 8187.2 3712 54.3 Output Total 1031 1080 432 Balance 7156.2 2632 -377.7 Result Diagrams: 12/13/18 03:55 12/13/18 03:55 Phys Exam - Physical Examination Constitutional: NAD Intubated, sedated. Respiratory: no wheezing, no rales, no rhonchi, clear to auscultation bilateral Cardiovascular: RRR, no significant murmur, no rub Gastrointestinal: soft, non-tender, no distention, positive bowel sounds Musculoskeletal: no edema Skin: no rash, normal turgor Dx/Plan (1) Acute hypoxemic respiratory failure Code(s): J96.01 - ACUTE RESPIRATORY FAILURE WITH HYPOXIA Status: Acute (2) Hypokalemia Code(s): E87.6 - HYPOKALEMIA Status: Acute (3) Severe alcohol withdrawal delirium Code(s): F10.231 - ALCOHOL DEPENDENCE WITH WITHDRAWAL DELIRIUM Status: Acute (4) Chronic alcoholism Code(s): F10.20 - ALCOHOL DEPENDENCE, UNCOMPLICATED Status: Chronic (5) Tachycardia Code(s): R00.0 - TACHYCARDIA, UNSPECIFIED Status: Acute (6) Fever Code(s): R50.9 - FEVER, UNSPECIFIED Status: Acute (7) Pneumonia Code(s): J18.9 - PNEUMONIA, UNSPECIFIED ORGANISM Status: Acute Comment: on Atbx (8) UTI (urinary tract infection) Status: Acute (9) Acute metabolic encephalopathy Code(s): G93.41 - METABOLIC ENCEPHALOPATHY Status: Acute - Plan * Growing MSSA in urine and sputum with same sensitivity pattern. Likely hematogenous spread. Continue abx. * Continue sedation and vent while having active DT's. *
--- NOTE | 2018-12-13 17:44 | CON ---
DATE OF CONSULTATION: 12/13/2018 REASON FOR CONSULTATION: Pneumonia and UTI. HISTORY OF PRESENT ILLNESS: A 33-year-old known to us from previous visits, who has a history of alcoholism and asthma. I had seen him for community-acquired pneumonia in July 2015. He at that time, had a positive Streptococcus pneumoniae antigen. His HIV, hepatitis C, and hepatitis B serologies have been negative. At this time, he presented with recrudescence of his alcoholism after a period of abstinence and he was brought by family because of altered mental status. In the emergency room, he is described as having being brought for evaluation of alcohol abuse. Apparently, the patient's girlfriend found him with strange behavior and tremors. Initial BP was 150/92, pulse 162, respirations 23, temperature 98.9, and O2 saturation 97. He is described in the emergency room is alert and oriented to person, place, and time and there is no evidence of respiratory distress. Breath sounds are described as clear. The heart examination is remarkable for tachycardia. Described some areas of healing contusions in bilateral upper extremities and scattered healing contusions in the lower extremities bilaterally. His initial labs showed a white cell count 7.6, hemoglobin 13, and platelets 76,000 with 85% neutrophils. Sodium 134, creatinine 0.67, bilirubin 2.4, AST 121, ALT 26, alkaline phosphatase 121, albumin 4.2, and globulin 3.0. Toxicology screen with negative results for alcohol, acetaminophen, and salicylates. Sodium 137 and creatinine 0.61. Urinalysis with greater than 50 wbc's and large leukocyte esterase. Microbiology thus far, we have a urine culture with Staphylococcus aureus greater than 100,000 CFUs with a broad susceptibility profile and respiratory culture from the sputum with Staph aureus. This specimen had 5 to 10 epithelial cells and polymicrobial chiara with many Staph aureus identified. The patient had an initial chest x-ray with magnified cardiac silhouette, but no pulmonary infiltrate identified on December 09. On December 10, the patient required intubation. There is a note by Dr. Goyal, stating that he was still agitated despite high doses of benzodiazepines. Therefore, we recommend him to undergo deep sedation and intubation in the critical care unit. The bronchoscope was advanced and he was intubated. The main concern at that time was alcohol withdrawal syndrome. His temperature has remained elevated until a few hours ago up to 103. Currently, Mr. Campbell is sedated with dexmedetomidine, lorazepam, propofol, and fentanyl as needed. PAST MEDICAL HISTORY: Includes alcoholism, strep pneumoniae, pneumonia in 2015, asthma, and migraine headaches. PAST SURGICAL HISTORY: Negative. ALLERGIES: ERYTHROMYCIN, MOSTLY GI REACTION. SOCIAL HISTORY: He had been working in [employer]. Smokes daily and had been abstinent, but resumed drinking recently. No history of IV drug use. FAMILY HISTORY: Diabetes mellitus type 2. CURRENT MEDICATIONS: Include; 1. Albuterol. 2. Sedatives to be used p.r.n. 3. Fentanyl. 4. Enoxaparin. 5. Pepcid. 6. Folvite. 7. Lorazepam. 8. Oxacillin. 9. Propofol. 10. Senna. 11. Thiamine. PHYSICAL EXAMINATION: VITAL SIGNS: T-max 103 December 11 seems to be highly defervesced since. BP 102/59 , O2 saturation 94%. I's and O's have been positive quite a bit until today, slightly negative today. SKIN: Slight area of redness intergluteal region. The patient has an ET tube in place. No lymphadenopathy. HEENT: Pupils are miotic. Sclerae white. Conjunctivae normal. NECK: Supple. No jugular vein distention. LUNGS: Symmetric air entry. HEART: S1 and S2. Regular rate without murmurs or S3. ABDOMEN: Soft and not distended. No ascites. No bladder distention. No organomegaly. EXTREMITIES: No joint inflammatory activity. I cannot test his movements. Plantar responses are indifferent. Pulses 1+ in dorsalis pedis , NEUROLOGIC: Sedated at this time. LABORATORY DATA: His followup labs; white cell count 6.5, hemoglobin 10.2, MCV 111, platelets 132, 39% neutrophils, and 36% bands. Sodium 137 and creatinine 0.61. The other findings have been reviewed. ASSESSMENT: 1. History of alcoholism. 2. Resumption of alcohol use, although on arrival picture was more consistent with withdrawal symptoms with delirium. 3. Evidence of inflammatory changes in bladder with Staphylococcus aureus, methicillin sensitive retrieved both from urine as well as his respiratory secretions. The respiratory secretions had elevated numbers of epithelial cells and there is some contamination with oral cavity, so this could reflect colonization rather than true pathogenic role for the pneumonia. Had been on Zosyn and vancomycin before. DISCUSSION: The sequence of events appears to be the development of delirium tremens, but he may have an associated process of invasive urinary tract infection in view of the findings in the urinary tract sample. Will need to image the kidneys and bladder with ultrasound or a CT stone protocol down the road. Regarding his respiratory issues, these may represent a staphylococcal process, for example, if he developed MSSA pyelonephritis with extension to lungs, but he could have an alternate pathogen. I would probably consider resumption of gram-negative coverage until this is clarified. Eventually, evaluation of his prostate and then discussion with patient regarding symptoms of urinary tract obstruction that he might have had in the recent past once he can be interviewed. If the possibility that he had been bacteremic from an alternate source is not apparent at this time. We will continue monitoring blood cultures until final results. Job ID: [id number] FAWAD
[2018-12-13] MEDS: Senokot 8.6 MG TAB PO SCH (21:45)
[2018-12-14] MEDS: Oxacillin 2 GM in Sodium Chloride 0.9% 100 ML IVPB SCH ×6 (02:23→22:52)
[2018-12-14] MEDS: Lorazepam 2 MG/ML VIAL SLOW IVP PRN (03:33)
[2018-12-14] MEDS: Sodium Chloride 0.45% 1,000 ML IV SCH (04:15)
[2018-12-14] MEDS: fentaNYL Citrate/PF 2,000 MCG in Sodium Chloride 0.9% 60 ML IV SCH (07:11)
[2018-12-14 07:24] LABS: Hemoglobin 10.1 g/dL (14.0-18.0); Mean Corpuscular HGB CONC 33.6 g/dL (32.0-36.0); Mean Corpuscular Hemoglobin 36.8 pg (27.0-31.0); Mean Platelet Volume 7.8 fL (7.4-10.4); Platelet Count 198 thou/uL (130-400); RBC Distribution Width 13.4 % (11.5-14.5); Red Blood Cell (RBC) Count 2.73 mill/uL (4.70-6.10); White Blood Cell (WBC) Count 8.1 thou/uL (4.8-10.8)
[2018-12-14 07:42] LABS: Anion Gap 10 mmol/L (10-20); BUN (Urea Nitrogen) 10 mg/dL (8.9-20.6); Calc. Creatinine Clearance 111 mL/min (70-130); Calcium 7.6 mg/dL (7.8-10.44); Carbon Dioxide 20 mmol/L (22-29); Chloride 113 mmol/L (98-107); Estimated GFR-MDRD Greater than 90; Glucose 150 mg/dL (70-105); Potassium 3.3 mmol/L (3.5-5.1); Sodium 140 mmol/L (136-145)
[2018-12-14 08:21] LABS: Band 18 % (5-11); Eosinophils 2 % (0-10); Lymphocytes 11 % (21-51); MDiff Complete? YES; Macrocytosis SLIGHT = 6-15 cells (100X) (0-5/hpf); Monocytes 16 % (0-10); Neutrophil 53 % (42-75); Platelet Morphology Comment Appears Adequate; Polychromasia SLIGHT = 2-3 cells (100X) (0-2/hpf); Toxic Granulation SLIGHT
--- NOTE | 2018-12-14 08:30 | PDOC.PN ---
- Subjective Encounter Start Date: 12/14/18 Encounter Start Time: 08:28 Subjective: intubated, sedated - Objective Resuscitation Status - Order Detail: 12/09/18 14:31 Resuscitation Status Routine Resuscitation Status: FULL: Full Resuscitation MAR Reviewed: Yes Vital Signs & Weight: Vital Signs (12 hours) Temp Pulse Resp BP Pulse Ox 12/14/18 08:00 98.7 F 13 12/14/18 07:36 11 L 99 12/14/18 07:00 98.7 F 12/14/18 06:41 93 12/14/18 06:00 14 12/14/18 04:00 98.7 F 13 12/14/18 03:24 85 12/14/18 02:00 13 12/14/18 00:00 98.7 F 12 12/13/18 22:53 84 98/59 L 12/13/18 22:00 12 Weight Admit Weight 189 lb Weight 155 lb 10.342 oz Most Recent Monitor Data Heart Rate from ECG 100 NIBP 108/64 NIBP BP-Mean 78 Respiration from ECG 13 SpO2 100 I&O: 12/13/18 12/14/18 12/15/18 06:59 06:59 06:59 Intake Total 3712 3610.0 Output Total 1080 1115 165 Balance 2632 2495.0 -165 Result Diagrams: 12/14/18 07:10 12/14/18 07:10 Phys Exam - Physical Examination Neck: no JVD coarse BS with rhonchi Cardiovascular: RRR, no significant murmur Gastrointestinal: soft, positive bowel sounds Musculoskeletal: no edema Dx/Plan (1) Acute metabolic encephalopathy Code(s): G93.41 - METABOLIC ENCEPHALOPATHY Status: Acute (2) UTI (urinary tract infection) Status: Acute Qualifiers: Urinary tract infection type: site unspecified (3) Acute hypoxemic respiratory failure Code(s): J96.01 - ACUTE RESPIRATORY FAILURE WITH HYPOXIA Status: Acute (4) Hypokalemia Code(s): E87.6 - HYPOKALEMIA Status: Acute (5) Hypophosphatemia Code(s): E83.39 - OTHER DISORDERS OF PHOSPHORUS METABOLISM Status: Acute (6) Pneumonia Code(s): J18.9 - PNEUMONIA, UNSPECIFIED ORGANISM Status: Ruled-out Comment: on Atbx (7) Severe alcohol withdrawal delirium Code(s): F10.231 - ALCOHOL DEPENDENCE WITH WITHDRAWAL DELIRIUM Status: Acute - Plan vent per pulmonology -: cont iv antibx -: electrolyte replacement -: discuss with bus repair supervisor * .
[2018-12-14] MEDS: Senokot 8.6 MG TAB PO SCH ×2 (08:41→21:30)
[2018-12-14] MEDS: Famotidine/PF 20 mg/2ml Vial SLOW IVP SCH ×2 (08:41→21:30)
[2018-12-14] MEDS: Thiamine 100 MG TAB PO SCH (08:41)
[2018-12-14] MEDS: Enoxaparin Sodium 40 MG/0.4 ML SYRINGE SC SCH (08:41)
[2018-12-14] MEDS: Folic Acid 1 MG TAB PO SCH (08:41)
--- NOTE | 2018-12-14 19:38 | PRG ---
DATE OF SERVICE: 12/14/2018 SUBJECTIVE: Sea Campbell was stable over the weekend. His fentanyl was discontinued. He is still on the Precedex drip. OBJECTIVE: VITAL SIGNS: Heart rate is 104, respiratory rate in the 20s, oximetry is 92%, and blood pressure 116/78. LUNGS: Clear. HEART: Regular rhythm. ABDOMEN: Soft. EXTREMITIES: Without asymmetry. LABORATORY DATA: There is no chest x-ray today. White count 8.1, hemoglobin 10.1, platelets 198. Sodium 140, potassium 3.3, chloride 113, bicarb 20, BUN 10, creatinine 0.96. IMPRESSION: 1. Delirium tremens, status post intubation. 2. 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 Critical care time is 35 minutes. Job ID: [id number] MTDD
[2018-12-15] MEDS: Oxacillin 2 GM in Sodium Chloride 0.9% 100 ML IVPB SCH ×6 (02:20→22:35)
[2018-12-15 05:10] LABS: Anion Gap 10 mmol/L (10-20); BUN (Urea Nitrogen) 6 mg/dL (8.9-20.6); Calc. Creatinine Clearance 127 mL/min (70-130); Calcium 8.1 mg/dL (7.8-10.44); Carbon Dioxide 20 mmol/L (22-29); Chloride 112 mmol/L (98-107); Estimated GFR-MDRD Greater than 90; Glucose 123 mg/dL (70-105); Potassium 3.2 mmol/L (3.5-5.1); Sodium 139 mmol/L (136-145)
[2018-12-15 05:16] LABS: Band 16 % (5-11); Eosinophils 1 % (0-10); Hemoglobin 10.2 g/dL (14.0-18.0); Lymphocytes 11 % (21-51); MDiff Complete? YES; Macrocytosis SLIGHT = 6-15 cells (100X) (0-5/hpf); Mean Corpuscular HGB CONC 32.8 g/dL (32.0-36.0); Mean Platelet Volume 7.5 fL (7.4-10.4); Metamyelocyte 1 % (0-0); Monocytes 13 % (0-10); Neutrophil 58 % (42-75); Platelet Count 257 thou/uL (130-400); RBC Distribution Width 14.1 % (11.5-14.5); Red Blood Cell (RBC) Count 2.83 mill/uL (4.70-6.10); White Blood Cell (WBC) Count 7.3 thou/uL (4.8-10.8)
[2018-12-15] MEDS: Sodium Chloride 0.45% 1,000 ML IV SCH (07:59)
[2018-12-15] MEDS: Senokot 8.6 MG TAB PO SCH ×2 (08:05→21:04)
[2018-12-15] MEDS: Enoxaparin Sodium 40 MG/0.4 ML SYRINGE SC SCH (08:05)
[2018-12-15] MEDS: Folic Acid 1 MG TAB PO SCH (08:05)
[2018-12-15] MEDS: Thiamine 100 MG TAB PO SCH (08:05)
[2018-12-15] MEDS: Famotidine/PF 20 mg/2ml Vial SLOW IVP SCH ×2 (08:05→21:03)
--- NOTE | 2018-12-15 09:13 | PDOC.PN ---
- Subjective Encounter Start Date: 12/15/18 Encounter Start Time: 09:12 Subjective: alert, expresses, understanding, follows simple instructions -: (still intubated) - Objective Resuscitation Status - Order Detail: 12/09/18 14:31 Resuscitation Status Routine Resuscitation Status: FULL: Full Resuscitation MAR Reviewed: Yes Vital Signs & Weight: Vital Signs (12 hours) Temp Pulse Resp Pulse Ox 12/15/18 07:31 98.2 F 16 98 12/15/18 07:09 104 H 12/15/18 07:00 98.2 F 12/15/18 06:00 15 12/15/18 04:00 99.4 F 15 12/15/18 02:00 16 12/15/18 00:00 14 12/14/18 23:22 100 16 100 12/14/18 23:00 99.7 F H Weight Admit Weight 189 lb Weight 156 lb 6.4 oz Most Recent Monitor Data Heart Rate from ECG 98 NIBP 130/85 NIBP BP-Mean 100 Respiration from ECG 14 SpO2 99 I&O: 12/14/18 12/15/18 12/16/18 06:59 06:59 06:59 Intake Total 3610.0 2548.5 30 Output Total 1115 2920 240 Balance 2495.0 -371.5 -210 Result Diagrams: 12/15/18 04:45 12/15/18 04:45 Phys Exam - Physical Examination Neck: no JVD improved BS, mildly coarse, occ rhonchi Cardiovascular: RRR, no significant murmur Gastrointestinal: soft, positive bowel sounds Musculoskeletal: no edema Dx/Plan (1) Acute metabolic encephalopathy Code(s): G93.41 - METABOLIC ENCEPHALOPATHY Status: Acute (2) UTI (urinary tract infection) Status: Acute Qualifiers: Urinary tract infection type: site unspecified (3) Acute hypoxemic respiratory failure Code(s): J96.01 - ACUTE RESPIRATORY FAILURE WITH HYPOXIA Status: Acute (4) Hypokalemia Code(s): E87.6 - HYPOKALEMIA Status: Acute (5) Hypophosphatemia Code(s): E83.39 - OTHER DISORDERS OF PHOSPHORUS METABOLISM Status: Acute (6) Severe alcohol withdrawal delirium Code(s): F10.231 - ALCOHOL DEPENDENCE WITH WITHDRAWAL DELIRIUM Status: Acute (7) Cardiomyopathy Code(s): I42.9 - CARDIOMYOPATHY, UNSPECIFIED Status: Acute Qualifiers: Cardiomyopathy type: alcoholic Qualified Code(s): I42.6 - Alcoholic cardiomyopathy - Plan weaning from vent in progress -: no 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
--- NOTE | 2018-12-15 20:15 | PRG ---
DATE OF SERVICE: 12/15/2018 SUBJECTIVE: Mr. Campbell had his Precedex cut in half this morning. He did well, would follow commands. He passed a leak test. He subsequently has been extubated after he met criteria for extubation and passed spontaneous breathing trial. OBJECTIVE: LUNGS: Clear. HEART: Regular rhythm. ABDOMEN: Soft. EXTREMITIES: Without asymmetry or edema. LABORATORY DATA: White count 7.3, hemoglobin 10.2, and platelets 257. Sodium 139, potassium 3.2, chloride 112, bicarb 20, BUN 6, creatinine 0.84, and glucose 123. IMPRESSION: 1. Severe life-threatening alcohol withdrawal. 2. Fever, last Friday with Staph aureus isolated in his urine and Staph aureus isolated from a respiratory culture, which is oxacillin sensitive. The respiratory culture is likely a tracheal colonizer. He appears to be getting through his alcohol window, and hopefully, we can transfer him out of the Critical Care Unit tomorrow. Critical care time, 30 minutes. Job ID: [id number]
[2018-12-16] MEDS: Oxacillin 2 GM in Sodium Chloride 0.9% 100 ML IVPB SCH ×6 (02:06→22:20)
[2018-12-16] MEDS: Sodium Chloride 0.45% 1,000 ML IV SCH ×2 (02:06→18:17)
[2018-12-16 04:50] LABS: Anion Gap 13 mmol/L (10-20); BUN (Urea Nitrogen) 6 mg/dL (8.9-20.6); Calc. Creatinine Clearance 128 mL/min (70-130); Calcium 8.6 mg/dL (7.8-10.44); Carbon Dioxide 24 mmol/L (22-29); Chloride 111 mmol/L (98-107); Estimated GFR-MDRD Greater than 90; Glucose 98 mg/dL (70-105); Potassium 3.1 mmol/L (3.5-5.1); Sodium 145 mmol/L (136-145)
[2018-12-16 04:58] LABS: Hemoglobin 10.4 g/dL (14.0-18.0); Mean Corpuscular HGB CONC 32.7 g/dL (32.0-36.0); Mean Corpuscular Hemoglobin 35.7 pg (27.0-31.0); Mean Platelet Volume 7.5 fL (7.4-10.4); Platelet Count 348 thou/uL (130-400); RBC Distribution Width 14.6 % (11.5-14.5); Red Blood Cell (RBC) Count 2.92 mill/uL (4.70-6.10); White Blood Cell (WBC) Count 8.4 thou/uL (4.8-10.8)
[2018-12-16 04:59] LABS: Band 32 % (5-11); Lymphocytes 15 % (21-51); MDiff Complete? YES; Monocytes 13 % (0-10); Neutrophil 40 % (42-75)
[2018-12-16] MEDS: Famotidine/PF 20 mg/2ml Vial SLOW IVP SCH ×2 (08:12→22:21)
[2018-12-16] MEDS: Enoxaparin Sodium 40 MG/0.4 ML SYRINGE SC SCH (08:12)
[2018-12-16] MEDS: Senokot 8.6 MG TAB PO SCH ×2 (08:33→22:20)
[2018-12-16] MEDS: Thiamine 100 MG TAB PO SCH (08:33)
[2018-12-16] MEDS: Folic Acid 1 MG TAB PO SCH (08:33)
--- NOTE | 2018-12-16 10:11 | PDOC.PN ---
- Subjective Encounter Start Date: 12/16/18 Encounter Start Time: 10:10 Subjective: confused, trying to pick at " little red fish' - Objective Resuscitation Status - Order Detail: 12/09/18 14:31 Resuscitation Status Routine Resuscitation Status: FULL: Full Resuscitation MAR Reviewed: Yes Vital Signs & Weight: Vital Signs (12 hours) Temp Pulse Resp Pulse Ox 12/16/18 06:54 93 L 12/16/18 06:40 88 93 L 12/16/18 04:00 99.2 F 12/16/18 00:12 85 22 H 95 12/16/18 00:00 99.4 F Weight Admit Weight 189 lb Weight 159 lb 4.8 oz Most Recent Monitor Data Heart Rate from ECG 106 NIBP 144/89 NIBP BP-Mean 107 Respiration from ECG 36 SpO2 94 I&O: 12/15/18 12/16/18 12/17/18 06:59 06:59 06:59 Intake Total 2548.5 2526 Output Total 2920 4535 Balance -371.5 -2008 Result Diagrams: 12/16/18 04:25 12/16/18 04:25 Phys Exam - Physical Examination Neck: no JVD SCANT POST RALES, ADEQUATE bs Cardiovascular: RRR, no significant murmur Gastrointestinal: soft, positive bowel sounds Musculoskeletal: no edema, pulses present Dx/Plan (1) Acute metabolic encephalopathy Code(s): G93.41 - METABOLIC ENCEPHALOPATHY Status: Acute (2) UTI (urinary tract infection) Status: Acute Qualifiers: Urinary tract infection type: site unspecified (3) Acute hypoxemic respiratory failure Code(s): J96.01 - ACUTE RESPIRATORY FAILURE WITH HYPOXIA Status: Acute (4) Hypokalemia Code(s): E87.6 - HYPOKALEMIA Status: Acute (5) Hypophosphatemia Code(s): E83.39 - OTHER DISORDERS OF PHOSPHORUS METABOLISM Status: Acute (6) Severe alcohol withdrawal delirium Code(s): F10.231 - ALCOHOL DEPENDENCE WITH WITHDRAWAL DELIRIUM Status: Acute (7) Cardiomyopathy Code(s): I42.9 - CARDIOMYOPATHY, UNSPECIFIED Status: Acute Qualifiers: Cardiomyopathy type: alcoholic Qualified Code(s): I42.6 - Alcoholic cardiomyopathy - Plan encephalopathy persists-wernickes? -: cont electrolyte repacement -: nutrition -: thiamine * .
--- NOTE | 2018-12-16 16:23 | PRG ---
DATE OF SERVICE: 12/16/2018 SUBJECTIVE: Mr. Campbell is still confused. Dr. Guevara and I discussed his case and to our impression that he may have Wernicke encephalopathy. In any event, the care is supportive at this point. Doing well postextubation with no respiratory distress. Still has resting tachycardia. By rhythm strips, this appears to be sinus rhythm. I think it is reasonable to place him on a beta cipriano. OBJECTIVE: Lungs, heart, and abdomen are unchanged. LABORATORY DATA: White count is 8.4, hemoglobin 10.4, platelets 348. Sodium 145, potassium 3.1, chloride 111, bicarb 24, BUN 6, and creatinine 0.84. IMPRESSION: 1. Status post intubation for severe encephalopathy, felt to be alcohol withdrawal. 2. ? Wernicke encephalopathy versus ongoing low-grade alcohol withdrawal. 3. Staph aureus in urine culture and respiratory culture. I do not feel he had a Staph aureus pneumonia. 4. Left ventricular systolic dysfunction secondary to most likely his alcoholism. He needs to be plugged in with recycling specialist. 5. Fever, which certainly could have been associated with alcohol withdrawal, this has resolved. He is stable to move to a step-down bed in my opinion. Job ID: [id number]
[2018-12-16] MEDS: Metoprolol Tartrate 25 MG TAB PO SCH (22:21)
[2018-12-17] MEDS: Oxacillin 2 GM in Sodium Chloride 0.9% 100 ML IVPB SCH ×6 (01:30→22:37)
[2018-12-17] MEDS: Sodium Chloride 0.45% 1,000 ML IV SCH (01:30)
[2018-12-17 06:36] LABS: Anion Gap 16 mmol/L (10-20); BUN (Urea Nitrogen) 6 mg/dL (8.9-20.6); Calc. Creatinine Clearance 119 mL/min (70-130); Calcium 8.6 mg/dL (7.8-10.44); Carbon Dioxide 21 mmol/L (22-29); Chloride 109 mmol/L (98-107); Estimated GFR-MDRD Greater than 90; Glucose 85 mg/dL (70-105); Sodium 143 mmol/L (136-145)
[2018-12-17 06:38] LABS: Band 14 % (5-11); Hemoglobin 10.2 g/dL (14.0-18.0); Lymphocytes 9 % (21-51); MDiff Complete? YES; Macrocytosis SLIGHT = 6-15 cells (100X) (0-5/hpf); Mean Corpuscular HGB CONC 31.9 g/dL (32.0-36.0); Mean Corpuscular Hemoglobin 35.1 pg (27.0-31.0); Mean Platelet Volume 7.7 fL (7.4-10.4); Monocytes 9 % (0-10); Myelocyte 2 % (0-0); Neutrophil 65 % (42-75); Platelet Count 448 thou/uL (130-400); Platelet Morphology Comment Appears Increased; RBC Distribution Width 15.2 % (11.5-14.5); Reactive Lymphocytes 1 % (0-10); White Blood Cell (WBC) Count 9.4 thou/uL (4.8-10.8)
[2018-12-17] MEDS ORDERED: Haloperidol Lactate 5 MG/ML VIAL SLOW IVP PRN (07:35)
--- NOTE | 2018-12-17 07:43 | PDOC.PN ---
- Subjective Encounter Start Date: 12/17/18 Encounter Start Time: 07:38 Subjective: agitated, hallucinating - Objective Resuscitation Status - Order Detail: 12/09/18 14:31 Resuscitation Status Routine Resuscitation Status: FULL: Full Resuscitation MAR Reviewed: Yes Vital Signs & Weight: Vital Signs (12 hours) Temp Pulse Resp Pulse Ox 12/17/18 07:28 125 H 40 H 12/17/18 07:24 99.9 F H 12/17/18 07:09 95 12/17/18 03:52 98.6 F 12/17/18 00:24 117 H 14 100 Weight Admit Weight 189 lb Weight 147 lb 1.6 oz Most Recent Monitor Data Heart Rate from ECG 126 NIBP 146/93 NIBP BP-Mean 110 Respiration from ECG 26 SpO2 95 I&O: 12/16/18 12/17/18 12/18/18 06:59 06:59 06:59 Intake Total 2526 2168 Output Total 4535 2920 [facility] -2008 -752 Result Diagrams: 12/17/18 05:20 12/17/18 05:20 Phys Exam - Physical Examination Neck: no JVD grossly clear, few scattered rales Cardiovascular: RRR, no significant murmur tachy Gastrointestinal: soft, positive bowel sounds Musculoskeletal: no edema Dx/Plan (1) Acute metabolic encephalopathy Code(s): G93.41 - METABOLIC ENCEPHALOPATHY Status: Acute (2) UTI (urinary tract infection) Status: Acute Qualifiers: Urinary tract infection type: site unspecified (3) Acute hypoxemic respiratory failure Code(s): J96.01 - ACUTE RESPIRATORY FAILURE WITH HYPOXIA Status: Acute (4) Hypokalemia Code(s): E87.6 - HYPOKALEMIA Status: Acute (5) Hypophosphatemia Code(s): E83.39 - OTHER DISORDERS OF PHOSPHORUS METABOLISM Status: Acute (6) Severe alcohol withdrawal delirium Code(s): F10.231 - ALCOHOL DEPENDENCE WITH WITHDRAWAL DELIRIUM Status: Acute (7) Cardiomyopathy Code(s): I42.9 - CARDIOMYOPATHY, UNSPECIFIED Status: Acute Qualifiers: Cardiomyopathy type: alcoholic Qualified Code(s): I42.6 - Alcoholic cardiomyopathy - Plan rpt cxr. - improved aeration -: discussed with Dr Goyal -: start haldol for agitation * .
[2018-12-17] MEDS: Famotidine/PF 20 mg/2ml Vial SLOW IVP SCH ×2 (07:56→20:48)
[2018-12-17] MEDS: Haloperidol Lactate 5 MG/ML VIAL IM SCH ×4 (07:56→20:49)
[2018-12-17] MEDS: Metoprolol Tartrate 25 MG TAB PO SCH ×2 (07:57→20:49)
[2018-12-17] MEDS: Folic Acid 1 MG TAB PO SCH (07:57)
[2018-12-17] MEDS: Thiamine 100 MG TAB PO SCH (07:57)
[2018-12-17] MEDS: Senokot 8.6 MG TAB PO SCH ×2 (08:06→20:49)
[2018-12-17] MEDS: Enoxaparin Sodium 40 MG/0.4 ML SYRINGE SC SCH (08:25)
[2018-12-17] MEDS: Lorazepam 2 MG/ML VIAL SLOW IVP SCH ×2 (08:26→21:10)
--- NOTE | 2018-12-17 08:48 | RAD ---
CHEST 1 VIEW: Date: 12/17/18 INDICATION: History of pneumonia. COMPARISON: Prior exam dated 12/13/18. FINDINGS: The patient has undergone extubation with removal of the gastric catheter. The left lower lobe and ri ght upper lobe pneumonia is mildly improved. No pleural effusion is evident. No acute osseous abnorma lity is evident. IMPRESSION: 1. Right upper lobe and left lower lobe air space consolidation has decreased in prominence, consist ent with some improvement of the pneumonia. 2. Interval extubation and gastric catheter with removal since 12/13/18. POS: MAGO
--- NOTE | 2018-12-17 09:11 | PRG ---
DATE OF SERVICE: 12/17/2018 SUBJECTIVE: Sea Campbell remains confused. He is oriented intermittently, but is hallucinating. Haldol will be added today. OBJECTIVE: VITAL SIGNS: He is afebrile. Heart rate is 120, respiratory rates in the 30s with his agitation, and oximetry is 95% on nasal cannula, 3 L. LUNGS: Clear. HEART: Regular rhythm. S1 and S2 are normal. ABDOMEN: Soft and nontender. IMPRESSION: 1. Encephalopathy, ? Wernicke's. 2. Status post alcohol withdrawal. 3. Status post mechanical ventilation. 4. Staphylococcus aureus in his urine and tracheobronchial secretions. I suspect the tracheobronchial secretions are colonizers. 5. Left ventricular systolic dysfunction, most likely secondary to alcoholism at his 33 years of age. 6. Haziness in his right upper lobe on today's chest radiograph. Significance is unclear. 7. He had a temperature to 100.7 yesterday. If he continues to be intermittently febrile, antibiotics to cover for aspiration pathogens should be broadened. His sedation protocol has not been discontinued on the computer, so I have discontinued this. We will continue to follow. Job ID: [id number] [facility]
[2018-12-17] MEDS: Acetaminophen 325 MG TAB PO PRN (15:35)
[2018-12-18] MEDS: Haloperidol Lactate 5 MG/ML VIAL IM SCH ×7 (00:51→20:15)
[2018-12-18] MEDS: Oxacillin 2 GM in Sodium Chloride 0.9% 100 ML IVPB SCH ×6 (02:43→22:34)
[2018-12-18 05:44] LABS: Band 18 % (5-11); Eosinophils 2 % (0-10); Lymphocytes 15 % (21-51); MDiff Complete? YES; Mean Corpuscular HGB CONC 31.1 g/dL (32.0-36.0); Mean Platelet Volume 7.4 fL (7.4-10.4); Monocytes 5 % (0-10); Neutrophil 60 % (42-75); Platelet Count 506 thou/uL (130-400); Platelet Morphology Comment Appears Increased; RBC Distribution Width 15.2 % (11.5-14.5); Red Blood Cell (RBC) Count 2.93 mill/uL (4.70-6.10); White Blood Cell (WBC) Count 10.3 thou/uL (4.8-10.8)
[2018-12-18 05:48] LABS: Anion Gap 15 mmol/L (10-20); BUN (Urea Nitrogen) 4 mg/dL (8.9-20.6); Calc. Creatinine Clearance 123 mL/min (70-130); Calcium 8.4 mg/dL (7.8-10.44); Carbon Dioxide 22 mmol/L (22-29); Chloride 108 mmol/L (98-107); Estimated GFR-MDRD Greater than 90; Glucose 82 mg/dL (70-105); Sodium 142 mmol/L (136-145)
[2018-12-18 05:50] LABS: Potassium 2.7 mmol/L (3.5-5.1)
[2018-12-18] MEDS: Famotidine/PF 20 mg/2ml Vial SLOW IVP SCH ×2 (09:17→21:16)
[2018-12-18] MEDS: Lorazepam 2 MG/ML VIAL SLOW IVP SCH ×2 (09:18→21:16)
[2018-12-18] MEDS: Enoxaparin Sodium 40 MG/0.4 ML SYRINGE SC SCH (09:31)
[2018-12-18] MEDS: Senokot 8.6 MG TAB PO SCH ×2 (09:31→21:16)
[2018-12-18] MEDS: Folic Acid 1 MG TAB PO SCH (09:31)
[2018-12-18] MEDS: Metoprolol Tartrate 25 MG TAB PO SCH ×2 (09:31→21:16)
[2018-12-18] MEDS: Sodium Chloride 0.45% 1,000 ML IV SCH (09:32)
[2018-12-18] MEDS: Thiamine 100 MG TAB PO SCH (09:32)
[2018-12-18 10:02] LABS: Magnesium 1.1 mg/dL (1.6-2.6); Phosphorus 4.5 mg/dL (2.3-4.7)
--- NOTE | 2018-12-18 10:03 | PRG ---
DATE OF SERVICE: 12/18/2018 SUBJECTIVE: Mr. Campbell is still encephalopathic. Apparently, he has a sister coming into town. OBJECTIVE: VITAL SIGNS: He is afebrile. His heart rate is still mildly elevated at 115. Oximetry is 93% to 95% on a cannula. LUNGS: Clear. HEART: Regular rhythm. ABDOMEN: Soft. LABORATORY DATA: White count is 10.3, hemoglobin 10.0, and platelets 506,000. Sodium 142, potassium 2.7, chloride 108, bicarb 22, BUN 4, and creatinine 0.8. IMPRESSION: 1. Status post intubation for severe encephalopathy that was felt to be alcohol withdrawal related. 2. Persistent encephalopathy nor concerns that he might have Wernicke's. 3. Long history of heavy alcohol abuse. PLAN: We will continue with supportive care. Placement will be an issue. He cannot go into a long term, requiring restraints. Hopefully, we will see gradual improvement of his encephalopathy. He could tell me that he was in a medical building, but could not tell me where he slept last night. He did know he was in [place], [place]. He will continue with Haldol IM every 4 hours and Ativan twice a day. He was started on a beta-cipriano yesterday. He is still on oxacillin. He does have a depressed ventricle. Statistically, in a 33-year-old, this is most likely related to his alcoholism. We will continue to follow. Job ID: [id number]
[2018-12-18] MEDS ORDERED: Magnesium Sulfate 4 GM in Sodium Chloride 0.9% 250 ML 250 ML IVPB SCH (11:00)
--- NOTE | 2018-12-18 13:48 | PRG ---
DATE OF SERVICE: 12/18/2018 SUBJECTIVE: He is still a little bit delirious, but he knows his name and knew the date, could not tell me what the name of the hospital was, but he knew he was in the hospital, still restrained. Denies any chest pain. No abdominal pain. OBJECTIVE: VITAL SIGNS: T-max 99.9, blood pressure 150/99, pulse 115. HEENT: Ocular movements conjugate. LUNGS: Symmetric air entry. CARDIAC: S1-S2 regular rate. ABDOMEN: Soft, not distended. LABORATORY DATA: White cell count 10.3, hemoglobin 10, platelets 506. Creatinine 0.82. Sodium 142, potassium 2.7, and his last CK was 1151. Microbiology with Staph aureus in the urine and respiratory tract. IMAGING: Last chest x-ray from December 17 with right upper lobe and left lower lobe airspace consolidation, decreased in prominence. ASSESSMENT AND DISCUSSION: Alcoholism history with resumption after brief period of abstinence with cystitis and Staphylococcus aureus infection from respiratory tract and urine as well as abnormal lung exam with abnormal imaging studies suggestive of pneumonia. For intents and purposes, he will have to continue treatment for respiratory tract infection. Eventual transition to oral antimicrobial therapy will be feasible probably with the quinolone in view of the urinary tract involvement or combination of quinolone and cephalexin for protracted periods of time. The patient still has an indwelling Marshall catheter and eventual voiding trial will have to be attempted. Imaging of the urinary tract may be considered to verify that there is no obstruction via the ultrasound or CT stone protocol. Job ID: [id number]
--- NOTE | 2018-12-18 16:10 | PDOC.PN ---
- Subjective Encounter Start Date: 12/18/18 Encounter Start Time: 13:30 Patient seen and examined. Remains confused. Follows commands to some extent. No overnight events - Objective Resuscitation Status - Order Detail: 12/09/18 14:31 Resuscitation Status Routine Resuscitation Status: FULL: Full Resuscitation MAR Reviewed: Yes Vital Signs & Weight: Vital Signs (12 hours) Temp Pulse Pulse Pulse Resp BP BP 12/18/18 15:43 99.7 F H 12/18/18 15:15 117 H 24 H 12/18/18 12:11 123 H 108 H 170/105 H 154/99 H 12/18/18 07:25 99.1 F 12/18/18 07:23 12/18/18 07:21 115 H 38 H Pulse Ox Pulse Ox Pulse Ox 12/18/18 15:43 12/18/18 15:15 12/18/18 12:11 94 L 99 12/18/18 07:25 12/18/18 07:23 93 L 12/18/18 07:21 95 Weight Admit Weight 189 lb Weight 135 lb 14.4 oz Most Recent Monitor Data Heart Rate from ECG 109 NIBP 154/99 NIBP BP-Mean 117 Respiration from ECG 14 SpO2 91 I&O: 12/17/18 12/18/18 12/19/18 06:59 06:59 06:59 Intake Total 2168 1500 Output Total 2920 3100 Balance -752 -1600 Result Diagrams: 12/18/18 05:06 12/18/18 05:06 EKG Reviewed by me: Yes (Tele SR) Phys Exam - Physical Examination Constitutional: NAD (Somnolent) Respiratory: no wheezing, no rhonchi Cardiovascular: RRR, no rub Gastrointestinal: soft, non-tender, positive bowel sounds Musculoskeletal: no edema Neurological: moves all 4 limbs Dx/Plan - Plan DVT proph w/lovenox, DVT proph w/SCDs 1. Toxic metabolic Encephalopathy/Alcohol withdrawal 2. Hypokalemia/Hypomagnesemia 3. Rhabdomyolysis 4. Alcoholic Hepatitis 5. UTI - Staph 6. Other issues per previous notes PLAN: Cont Thiamine Replace electrolytes LFTs and CK in AM AM labs Cont to monitor On Atbx for possible aspiration Review of Systems - Review of Systems Other: Cannot obtain due to current mentation - Medications/Allergies Allergies/Adverse Reactions: Allergies Allergy/AdvReac Type Severity Reaction Status Date / Time erythromycin lactobionate Allergy Verified 08/06/15 16:49 [From Erythrocin] Medications: Current Medications Acetaminophen (Tylenol) 650 mg PO Q4H PRN PRN Reason: Headache/Fever/Mild Pain (1-3) Last Admin: 12/11/18 16:51 Dose: 650 mg Albuterol/Ipratropium (Duoneb) 3 ml NEB [id number] [facility] Last Admin: 12/18/18 15:15 Dose: 3 ml Enoxaparin Sodium (Lovenox) 40 mg SC 0900 [facility] Last Admin: 12/18/18 09:31 Dose: 40 mg Famotidine (Pepcid) 20 mg SLOW IVP Q12HR [facility] Last Admin: 12/18/18 09:17 Dose: 20 mg Folic Acid (Folvite) 1 mg PO DAILY [facility] Last Admin: 12/18/18 09:31 Dose: Not Given Haloperidol Lactate (Haldol) 10 mg SLOW IVP Q4H PRN PRN Reason: Agitation Haloperidol Lactate (Haldol) 5 mg IM Q4H [facility] Last Admin: 12/18/18 11:35 Dose: 5 mg Sodium Chloride (1/2 Normal Saline) 1,000 mls @ 50 mls/hr IV .Q20H [facility] Last Admin: 12/18/18 09:32 Dose: 1,000 mls Oxacillin Sodium 2 gm/ Sodium (Chloride) 100 mls @ 200 mls/hr IVPB Q4H [facility] Last Admin: 12/18/18 11:34 Dose: 100 mls Lorazepam (Ativan) 0.5 mg SLOW IVP Q12HR [facility] Last Admin: 12/18/18 09:18 Dose: 0.5 mg Metoprolol Tartrate (Lopressor) 25 mg PO BID [facility] Last Admin: 12/18/18 09:31 Dose: Not Given Discontinue Previous Narcotic Pain Medications And Benzodiazepines 1 each FS .ONE [facility] Stop: 01/09/19 21:11 Potassium Chloride (Klor-Con) 40 meq PO BID [facility] Last Admin: 12/18/18 09:17 Dose: 40 meq Senna (Senokot) 1 tab PO BID [facility] Last Admin: 12/18/18 09:31 Dose: Not Given Sodium Chloride (Flush - Normal Saline) 10 ml IVF Q12HR [facility] Last Admin: 12/18/18 09:32 Dose: Not Given Sodium Chloride (Flush - Normal Saline) 10 ml IVF PRN PRN PRN Reason: Saline Flush Thiamine HCl (Thiamine) 100 mg PO DAILY [facility] Last Admin: 12/18/18 09:32 Dose: Not Given
[2018-12-18] MEDS ORDERED: Thiamine HCl 200 MG/2 ML VIAL SLOW IVP SCH (16:15)
[2018-12-18] MEDS: NS 0.9% w/ 40 MEQ KCL 1,000 ML IV SCH (17:00)
[2018-12-19] MEDS: Haloperidol Lactate 5 MG/ML VIAL IM SCH ×4 (00:04→21:07)
[2018-12-19] MEDS: Oxacillin 2 GM in Sodium Chloride 0.9% 100 ML IVPB SCH ×6 (02:12→21:13)
[2018-12-19 04:28] LABS: Anion Gap 12 mmol/L (10-20); BUN (Urea Nitrogen) Less than 4 mg/dL (8.9-20.6); Calc. Creatinine Clearance 124 mL/min (70-130); Calcium 7.9 mg/dL (7.8-10.44); Carbon Dioxide 23 mmol/L (22-29); Chloride 111 mmol/L (98-107); Estimated GFR-MDRD Greater than 90; Glucose 82 mg/dL (70-105); Magnesium 1.9 mg/dL (1.6-2.6); Phosphorus 4.6 mg/dL (2.3-4.7); Potassium 3.2 mmol/L (3.5-5.1); Sodium 143 mmol/L (136-145)
[2018-12-19 04:37] LABS: Band 14 % (5-11); Eosinophils 1 % (0-10); Hemoglobin 9.6 g/dL (14.0-18.0); Hypochromia SLIGHT = 6-15 cells (100X) (0-5/hpf); Lymphocytes 14 % (21-51); MDiff Complete? YES; Macrocytosis MODERATE=16-30 cells (100X) (0-5/hpf); Mean Corpuscular HGB CONC 31.5 g/dL (32.0-36.0); Mean Corpuscular Hemoglobin 34.5 pg (27.0-31.0); Metamyelocyte 2 % (0-0); Monocytes 4 % (0-10); Neutrophil 65 % (42-75); Platelet Count 531 thou/uL (130-400); Platelet Morphology Comment Appears Increased; RBC Distribution Width 15.1 % (11.5-14.5); Red Blood Cell (RBC) Count 2.78 mill/uL (4.70-6.10); White Blood Cell (WBC) Count 9.8 thou/uL (4.8-10.8)
[2018-12-19 04:44] LABS: ALT (SGPT) 13 U/L (8-55); AST (SGOT) 21 U/L (5-34); Albumin 2.4 g/dL (3.5-5.0); Alkaline Phosphatase 144 U/L (40-150); Bilirubin, Direct 0.3 mg/dL (0.1-0.3); Bilirubin, Total 0.6 mg/dL (0.2-1.2); CK (CPK) 44 U/L (30-200); Protein, Total 5.3 g/dL (6.0-8.3)
[2018-12-19] MEDS: Enoxaparin Sodium 40 MG/0.4 ML SYRINGE SC SCH (08:43)
[2018-12-19] MEDS: Lorazepam 2 MG/ML VIAL SLOW IVP SCH ×2 (08:43→21:06)
[2018-12-19] MEDS: Famotidine/PF 20 mg/2ml Vial SLOW IVP SCH ×2 (08:43→21:06)
[2018-12-19] MEDS: Folic Acid 1 MG TAB PO SCH (08:59)
[2018-12-19] MEDS: Senokot 8.6 MG TAB PO SCH ×2 (08:59→21:07)
[2018-12-19] MEDS: Metoprolol Tartrate 25 MG TAB PO SCH ×2 (08:59→21:06)
[2018-12-19] MEDS: Thiamine 100 MG TAB PO SCH (09:00)
[2018-12-19] MEDS: Thiamine HCl 200 MG/2 ML VIAL SLOW IVP SCH (09:01)
--- NOTE | 2018-12-19 11:28 | PRG ---
DATE OF SERVICE: 12/19/2018 SUBJECTIVE: This morning, he appears to be in no distress. Admits to be confused. OBJECTIVE: VITAL SIGNS: Temperature is 101 last night, sats are 93% on 3 L, pulse 112, blood pressure 120/80. CHEST: Decreased breath sounds. No wheezing. CARDIAC: Normal S1, S2. No gallop. ABDOMEN: No masses. LABORATORY DATA: White count 9000, H and H 9 and 30. Lytes are normal. IMPRESSION: Alcohol abuse, delirium, cardiomyopathy. PLAN: Continue PT supportive care. Follow while in the MICU. Empiric antibiotics. Job ID: [id number]
--- NOTE | 2018-12-19 11:50 | PDOC.PN ---
- Subjective Encounter Start Date: 12/19/18 Encounter Start Time: 11:49 Subjective: Seen and examined still with some confusion - Objective Resuscitation Status - Order Detail: 12/09/18 14:31 Resuscitation Status Routine Resuscitation Status: FULL: Full Resuscitation Vital Signs & Weight: Vital Signs (12 hours) Temp Pulse Resp 12/19/18 11:22 98.9 F 12/19/18 08:55 112 H 20 12/19/18 07:03 101.0 F H 12/19/18 04:28 99.5 F 12/19/18 00:12 98.3 F Weight Admit Weight 189 lb Weight 136 lb 12.8 oz Most Recent Monitor Data Heart Rate from ECG 99 NIBP 127/76 NIBP BP-Mean 93 Respiration from ECG 22 SpO2 100 I&O: 12/18/18 12/19/18 12/20/18 06:59 06:59 07:59 Intake Total 1500 1865 Output Total 3100 3650 Balance -1600 -1785 Result Diagrams: 12/19/18 04:01 12/19/18 04:01 Phys Exam - Physical Examination Constitutional: NAD HEENT: PERRLA, moist MMs, sclera anicteric, TM's clear Neck: no nodes, no JVD, supple, full ROM Respiratory: no wheezing, no rales, no rhonchi, clear to auscultation bilateral Cardiovascular: RRR, no significant murmur, no rub Gastrointestinal: soft, non-tender, no distention Musculoskeletal: pulses present Dx/Plan (1) Acute metabolic encephalopathy Code(s): G93.41 - METABOLIC ENCEPHALOPATHY Status: Acute (2) Hypokalemia Code(s): E87.6 - HYPOKALEMIA Status: Acute (3) Physical deconditioning Code(s): R53.81 - OTHER MALAISE Status: Acute (4) Severe alcohol withdrawal delirium Code(s): F10.231 - ALCOHOL DEPENDENCE WITH WITHDRAWAL DELIRIUM Status: Acute (5) Chronic alcoholism Code(s): F10.20 - ALCOHOL DEPENDENCE, UNCOMPLICATED Status: Chronic - Plan perinatal social worker Counselling -: Monitor and replete potassium * .
[2018-12-19] MEDS: NS 0.9% w/ 40 MEQ KCL 1,000 ML IV SCH (15:29)
[2018-12-19] MEDS: Potassium Chloride 20 MEQ TAB PO SCH (17:20)
--- NOTE | 2018-12-19 20:32 | EKG ---
Test Reason : Blood Pressure : / mmHG Vent. Rate : 151 BPM Atrial Rate : 151 BPM P-R Int : 128 ms QRS Dur : 078 ms QT Int : 276 ms P-R-T Axes : 065 075 043 degrees QTc Int : 437 ms Sinus tachycardia Possible Anterior infarct , age undetermined Abnormal ECG Confirmed by ANDREE HANSON MD ([id number]), sports editor VARSHA STRICKLAND ([id number]) on 12/19/2018 8:32:27 PM Referred By: Confirmed By:ANDREE HANSON MD
[2018-12-20] MEDS: Oxacillin 2 GM in Sodium Chloride 0.9% 100 ML IVPB SCH ×6 (01:52→21:24)
[2018-12-20] MEDS: Haloperidol Lactate 5 MG/ML VIAL IM SCH ×6 (04:55→20:14)
[2018-12-20 06:46] LABS: Anion Gap 10 mmol/L (10-20); BUN (Urea Nitrogen) 4 mg/dL (8.9-20.6); Calc. Creatinine Clearance 122 mL/min (70-130); Calcium 8.3 mg/dL (7.8-10.44); Carbon Dioxide 23 mmol/L (22-29); Chloride 110 mmol/L (98-107); Estimated GFR-MDRD Greater than 90; Glucose 80 mg/dL (70-105); Magnesium 1.7 mg/dL (1.6-2.6); Potassium 4.1 mmol/L (3.5-5.1); Sodium 139 mmol/L (136-145)
[2018-12-20 06:48] LABS: Band 14 % (5-11); Eosinophils 1 % (0-10); Hemoglobin 10.1 g/dL (14.0-18.0); Lymphocytes 12 % (21-51); MDiff Complete? YES; Mean Corpuscular HGB CONC 31.1 g/dL (32.0-36.0); Mean Corpuscular Hemoglobin 33.8 pg (27.0-31.0); Mean Platelet Volume 7.5 fL (7.4-10.4); Monocytes 8 % (0-10); Neutrophil 65 % (42-75); Platelet Count 613 thou/uL (130-400); Platelet Morphology Comment Appears Increased; RBC Distribution Width 14.9 % (11.5-14.5); White Blood Cell (WBC) Count 11.6 thou/uL (4.8-10.8)
[2018-12-20 06:49] LABS: Phosphorus 3.5 mg/dL (2.3-4.7)
[2018-12-20] MEDS: Thiamine 100 MG TAB PO SCH (10:54)
[2018-12-20] MEDS: Enoxaparin Sodium 40 MG/0.4 ML SYRINGE SC SCH (10:54)
[2018-12-20] MEDS: Metoprolol Tartrate 25 MG TAB PO SCH ×2 (10:55→20:14)
[2018-12-20] MEDS: Folic Acid 1 MG TAB PO SCH (10:55)
[2018-12-20] MEDS: Potassium Chloride 20 MEQ TAB PO SCH (10:56)
[2018-12-20] MEDS: Famotidine/PF 20 mg/2ml Vial SLOW IVP SCH ×2 (10:57→20:14)
[2018-12-20] MEDS: Lorazepam 2 MG/ML VIAL SLOW IVP SCH ×2 (10:58→21:21)
--- NOTE | 2018-12-20 10:59 | PDOC.PN ---
- Subjective Encounter Start Date: 12/20/18 Encounter Start Time: 10:58 Patient seen and examined. No new complaints. No overnight events. still having shaking and tachycardic. seen in IMCU. - Objective Resuscitation Status - Order Detail: 12/09/18 14:31 Resuscitation Status Routine Resuscitation Status: FULL: Full Resuscitation MAR Reviewed: Yes Vital Signs & Weight: Vital Signs (12 hours) Temp Pulse Resp Pulse Ox 12/20/18 09:13 94 L 12/20/18 09:10 113 H 16 12/20/18 08:00 99 12/20/18 07:16 99.4 F 12/20/18 06:10 26 H 93 L 12/20/18 04:09 99.7 F H 12/20/18 00:14 98.7 F 12/19/18 23:44 95 21 H 96 Weight Admit Weight 189 lb Weight 140 lb 5 oz Most Recent Monitor Data Heart Rate from ECG 101 NIBP 158/98 NIBP BP-Mean 118 Respiration from ECG 43 SpO2 90 I&O: 12/19/18 12/20/18 12/21/18 05:59 06:59 06:59 Intake Total Output Total Balance Result Diagrams: 12/20/18 05:16 12/20/18 05:16 Phys Exam - Physical Examination Constitutional: NAD HEENT: sclera anicteric Neck: supple Respiratory: no wheezing, no rales tachycardic Gastrointestinal: soft Musculoskeletal: no edema Neurological: non-focal, moves all 4 limbs tremors present Psychiatric: A&O x 3 Deviation from normal: depressed Skin: no rash Dx/Plan (1) Acute metabolic encephalopathy Code(s): G93.41 - METABOLIC ENCEPHALOPATHY Status: Acute (2) Tachycardia Code(s): R00.0 - TACHYCARDIA, UNSPECIFIED Status: Acute (3) Physical deconditioning Code(s): R53.81 - OTHER MALAISE Status: Acute (4) Severe alcohol withdrawal delirium Code(s): F10.231 - ALCOHOL DEPENDENCE WITH WITHDRAWAL DELIRIUM Status: Acute (5) Chronic alcoholism Code(s): F10.20 - ALCOHOL DEPENDENCE, UNCOMPLICATED Status: Chronic - Plan cont current plan of care, plan discussed w/ family, PT/OT, director social service, respiratory therapy, DVT proph w/lovenox * . continue close monitoring. continue supportive care. AM labs.
[2018-12-20] MEDS: Senokot 8.6 MG TAB PO SCH ×2 (11:00→20:15)
[2018-12-20] MEDS: NS 0.9% w/ 40 MEQ KCL 1,000 ML IV SCH ×2 (11:00→20:15)
--- NOTE | 2018-12-20 12:11 | PRG ---
DATE OF SERVICE: 12/20/2018 SUBJECTIVE: This morning, he is better. No longer encephalopathic. OBJECTIVE: VITAL SIGNS: Sats 90% on room air, temperature 99, pulse 113, blood pressure 120/80. CHEST: Decreased breath sounds, no wheezing. CARDIAC: Normal S1 and S2. No gallops. ABDOMEN: No masses. White count 11,000. H and H 10 and 32, platelet count normal. IMPRESSION: 1. Respiratory failure. 2. Alcohol abuse. 3. Encephalopathy, improved. 4. Sepsis. Continue PT, supportive care. We will follow. Job ID: [id number]
[2018-12-20] MEDS: Thiamine HCl 200 MG/2 ML VIAL SLOW IVP SCH (12:12)
[2018-12-21] MEDS: Haloperidol Lactate 5 MG/ML VIAL IM SCH ×6 (00:58→21:04)
[2018-12-21] MEDS: Oxacillin 2 GM in Sodium Chloride 0.9% 100 ML IVPB SCH ×6 (01:36→22:13)
[2018-12-21 08:18] LABS: Albumin 2.8 g/dL (3.5-5.0); Anion Gap 13 mmol/L (10-20); BUN (Urea Nitrogen) 5 mg/dL (8.9-20.6); BUN/Creatinine Ratio 3.82; Calc. Creatinine Clearance 71 mL/min (70-130); Carbon Dioxide 21 mmol/L (22-29); Chloride 111 mmol/L (98-107); Estimated GFR-MDRD 64; Glucose 89 mg/dL (70-105); Phosphorus 4.2 mg/dL (2.3-4.7); Potassium 4.6 mmol/L (3.5-5.1); Sodium 140 mmol/L (136-145)
[2018-12-21 08:31] LABS: #Eosinphils 0.1 thou/uL (0.0-0.7); #Lymphocytes 1.5 thou/uL (1.20-3.40); #Monocytes 0.5 thou/uL (0.11-0.59); %Basophils 0.4 % (0.0-1.0); %Eosinophils 1.4 % (0.0-10.0); %Lymphocytes 14.7 % (21.0-51.0); %Monocytes 4.9 % (0.0-10.0); %Neutrophils 78.6 % (42.0-75.0); Hemoglobin 11.7 g/dL (14.0-18.0); MDiff Complete? YES; Macrocytosis MODERATE=16-30 cells (100X) (0-5/hpf); Mean Corpuscular Hemoglobin 34.7 pg (27.0-31.0); Mean Platelet Volume 7.3 fL (7.4-10.4); Platelet Count 697 thou/uL (130-400); Platelet Morphology Comment Appears Increased; Polychromasia SLIGHT = 2-3 cells (100X) (0-2/hpf); RBC Distribution Width 14.7 % (11.5-14.5); Red Blood Cell (RBC) Count 3.36 mill/uL (4.70-6.10); White Blood Cell (WBC) Count 10.2 thou/uL (4.8-10.8)
[2018-12-21] MEDS: Thiamine HCl 200 MG/2 ML VIAL SLOW IVP SCH (09:11)
[2018-12-21] MEDS: Enoxaparin Sodium 40 MG/0.4 ML SYRINGE SC SCH (09:12)
[2018-12-21] MEDS: Senokot 8.6 MG TAB PO SCH ×2 (09:12→21:18)
[2018-12-21] MEDS: Metoprolol Tartrate 25 MG TAB PO SCH ×2 (09:13→21:18)
[2018-12-21] MEDS: Thiamine 100 MG TAB PO SCH (09:13)
[2018-12-21] MEDS: Famotidine/PF 20 mg/2ml Vial SLOW IVP SCH ×2 (09:13→21:18)
[2018-12-21] MEDS: Folic Acid 1 MG TAB PO SCH (09:13)
[2018-12-21] MEDS: Lorazepam 2 MG/ML VIAL SLOW IVP SCH ×2 (10:44→21:22)
[2018-12-21 13:00] VITALS: BMI 21.1
--- NOTE | 2018-12-21 15:14 | PDOC.PN ---
- Subjective Encounter Start Date: 12/21/18 Encounter Start Time: 01:00 Subjective: PATIENT ALERT AND ORIENTED TODAY - Objective Resuscitation Status - Order Detail: 12/09/18 14:31 Resuscitation Status Routine Resuscitation Status: FULL: Full Resuscitation MAR Reviewed: Yes Vital Signs & Weight: Vital Signs (12 hours) Temp Pulse Resp Pulse Ox 12/21/18 13:56 104 H 26 H 98 12/21/18 11:28 98.5 F 12/21/18 08:00 98 12/21/18 07:48 100 23 H 97 12/21/18 07:12 99.6 F 12/21/18 03:48 99.5 F Weight Admit Weight 189 lb Weight 135 lb 1 oz Most Recent Monitor Data Heart Rate from ECG 98 NIBP 142/99 NIBP BP-Mean 113 Respiration from ECG 26 SpO2 100 I&O: 12/20/18 12/21/18 12/22/18 06:59 06:59 06:59 Intake Total 3120 Output Total 7050 Balance -3930 Result Diagrams: 12/21/18 07:33 12/21/18 07:33 Phys Exam - Physical Examination HEENT: moist MMs Neck: no nodes, no JVD Respiratory: no wheezing, no rales Cardiovascular: RRR, no significant murmur Gastrointestinal: soft, non-tender, no distention Musculoskeletal: no edema, pulses present Neurological: non-focal, normal sensation Lymphatic: no nodes Skin: no rash Dx/Plan (1) DTs (delirium tremens) Code(s): F10.231 - ALCOHOL DEPENDENCE WITH WITHDRAWAL DELIRIUM Status: Acute (2) Acute metabolic encephalopathy Code(s): G93.41 - METABOLIC ENCEPHALOPATHY Status: Acute (3) Tachycardia Code(s): R00.0 - TACHYCARDIA, UNSPECIFIED Status: Acute (4) Acute hypoxemic respiratory failure Code(s): J96.01 - ACUTE RESPIRATORY FAILURE WITH HYPOXIA Status: Acute (5) Hepatitis, alcoholic, acute Code(s): K70.10 - ALCOHOLIC HEPATITIS WITHOUT ASCITES Status: Acute Comment : improved (6) Hypokalemia Code(s): E87.6 - HYPOKALEMIA Status: Acute - Plan out of bed/ambulate, DVT proph w/SCDs 1.CONTINUE IMPENDING DT TREATMENT. -: 2.PATIENT MORE ALERT AND ORIENTED. * .
--- NOTE | 2018-12-21 16:41 | PRG ---
DATE OF SERVICE: 12/21/2018 SUBJECTIVE: Sea Campbell is much more oriented and lucid than he was on Friday. OBJECTIVE: VITAL SIGNS: He is afebrile. Heart rate is 104, respiratory rate is 26, oximetry is 98% on room air. GENERAL: He has been getting himself up to bedside commode. I have recommended the nurses to remove his Marshall. LUNGS: Clear. HEART: Regular rhythm. ABDOMEN: Soft. EXTREMITIES: Without edema. LABORATORY DATA: Sodium 140, potassium 4.6, chloride 111, bicarb 21, BUN 5, and creatinine 1.31. Intake and outputs negative 3930, probably explains a bump in his creatinine. IMPRESSION: 1. Alcohol withdrawal. 2. ? Wernicke's. 3. encephalopathy is improving. Encephalopathy argues against Wernicke's. 4. Status post mechanical ventilation. 5. Weakness and deconditioning. 6. Positive urine culture for Staph and respiratory culture also for Staph on oxacillin. I would think his antimicrobial therapy could be simplified. He also appears to be stable to move out of the intermediate care unit. Job ID: [id number]
[2018-12-22] MEDS: Haloperidol Lactate 5 MG/ML VIAL IM SCH ×4 (00:32→12:23)
[2018-12-22] MEDS: Oxacillin 2 GM in Sodium Chloride 0.9% 100 ML IVPB SCH ×4 (02:17→15:05)
[2018-12-22] MEDS: NS 0.9% w/ 40 MEQ KCL 1,000 ML IV SCH (02:18)
[2018-12-22 05:58] LABS: Band 6 % (5-11); Eosinophils 1 % (0-10); Hemoglobin 10.9 g/dL (14.0-18.0); Lymphocytes 17 % (21-51); MDiff Complete? YES; Mean Corpuscular HGB CONC 32.4 g/dL (32.0-36.0); Mean Corpuscular Hemoglobin 34.9 pg (27.0-31.0); Mean Platelet Volume 6.9 fL (7.4-10.4); Monocytes 8 % (0-10); Neutrophil 68 % (42-75); Platelet Count 696 thou/uL (130-400); Platelet Morphology Comment Appears Increased; RBC Distribution Width 14.7 % (11.5-14.5); Red Blood Cell (RBC) Count 3.12 mill/uL (4.70-6.10); White Blood Cell (WBC) Count 10.7 thou/uL (4.8-10.8)
[2018-12-22 06:11] LABS: Albumin 2.7 g/dL (3.5-5.0); Anion Gap 12 mmol/L (10-20); BUN (Urea Nitrogen) 6 mg/dL (8.9-20.6); BUN/Creatinine Ratio 6.25; Calc. Creatinine Clearance 97 mL/min (70-130); Calcium 8.8 mg/dL (7.8-10.44); Carbon Dioxide 21 mmol/L (22-29); Chloride 109 mmol/L (98-107); Estimated GFR-MDRD Greater than 90; Glucose 90 mg/dL (70-105); Phosphorus 5.3 mg/dL (2.3-4.7); Potassium 4.4 mmol/L (3.5-5.1); Sodium 138 mmol/L (136-145)
[2018-12-22] MEDS: Enoxaparin Sodium 40 MG/0.4 ML SYRINGE SC SCH (09:11)
[2018-12-22] MEDS: Thiamine 100 MG TAB PO SCH (09:12)
[2018-12-22] MEDS: Metoprolol Tartrate 25 MG TAB PO SCH ×2 (09:12→20:28)
[2018-12-22] MEDS: Folic Acid 1 MG TAB PO SCH (09:12)
[2018-12-22] MEDS: Lorazepam 2 MG/ML VIAL SLOW IVP SCH (09:13)
[2018-12-22] MEDS: Senokot 8.6 MG TAB PO SCH ×2 (09:13→20:28)
[2018-12-22] MEDS: Famotidine/PF 20 mg/2ml Vial SLOW IVP SCH (09:13)
[2018-12-22] MEDS: Thiamine HCl 200 MG/2 ML VIAL SLOW IVP SCH (09:14)
--- NOTE | 2018-12-22 14:37 | PDOC.PN ---
- Subjective Encounter Start Date: 12/22/18 Encounter Start Time: 08:25 Subjective: Patient more alert today but still confabulates? - Objective Resuscitation Status - Order Detail: 12/09/18 14:31 Resuscitation Status Routine Resuscitation Status: FULL: Full Resuscitation MAR Reviewed: Yes Vital Signs & Weight: Vital Signs (12 hours) Temp Pulse Pulse Pulse Pulse Resp BP 12/22/18 13:33 97 15 12/22/18 11:09 99.5 F 12/22/18 10:02 143 H 122 H 116 H 136/95 H 12/22/18 08:00 12/22/18 07:46 12/22/18 07:44 88 12 12/22/18 07:16 99.2 F 12/22/18 03:59 98.5 F BP BP Pulse Ox Pulse Ox Pulse Ox Pulse Ox 12/22/18 13:33 99 12/22/18 11:09 12/22/18 10:02 132/93 H 141/92 H 93 L 93 L 93 L 12/22/18 08:00 95 12/22/18 07:46 92 L 12/22/18 07:44 91 L 12/22/18 07:16 12/22/18 03:59 Weight Admit Weight 189 lb Weight 134 lb 11.2 oz Most Recent Monitor Data Heart Rate from ECG 90 NIBP 132/93 NIBP BP-Mean 106 Respiration from ECG 15 SpO2 94 I&O: 12/21/18 12/22/18 12/23/18 06:59 06:59 06:59 Intake Total 3120 1210 Output Total 7050 4250 Balance -3930 -3040 Result Diagrams: 12/22/18 05:24 12/22/18 05:24 Phys Exam - Physical Examination HEENT: moist MMs Neck: no JVD, supple Respiratory: no wheezing, no rales, no rhonchi Cardiovascular: no significant murmur, no rub sinus tachycardia Gastrointestinal: soft, non-tender, no distention Musculoskeletal: pulses present Neurological: normal sensation, moves all 4 limbs Lymphatic: no nodes Deviation from normal: anxious Skin: no rash Dx/Plan (1) DTs (delirium tremens) Code(s): F10.231 - ALCOHOL DEPENDENCE WITH WITHDRAWAL DELIRIUM Status: Acute (2) Acute metabolic encephalopathy Code(s): G93.41 - METABOLIC ENCEPHALOPATHY Status: Acute (3) Tachycardia Code(s): R00.0 - TACHYCARDIA, UNSPECIFIED Status: Acute (4) Acute hypoxemic respiratory failure Code(s): J96.01 - ACUTE RESPIRATORY FAILURE WITH HYPOXIA Status: Acute (5) Hepatitis, alcoholic, acute Code(s): K70.10 - ALCOHOLIC HEPATITIS WITHOUT ASCITES Status: Acute Comment : improved (6) Hypokalemia Code(s): E87.6 - HYPOKALEMIA Status: Resolved - Plan cont current plan of care, social work administrator 1.Continue IMC monitoring -: 2.Will supplement nutrition with ensure.D/W Truck 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 -: 3.Can transfer to med surg floor once tachycardia has been resolved -: and pulmonary ok. * .
--- NOTE | 2018-12-22 17:04 | PRG ---
DATE OF SERVICE: 12/22/2018 SUBJECTIVE: Mr. Campbell become more and more lucid each day. He is probably close to his baseline. He is afebrile. He still has a very mild resting tachycardia, but this continues to improve. OBJECTIVE: VITAL SIGNS: His heart rate is 100 this afternoon, blood pressure 107/64. LUNGS: Clear. HEART: Regular rhythm. ABDOMEN: Soft. IMPRESSION: 1. Status post severe alcohol withdrawal and encephalopathy. 2. 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 3. Anemia secondary to his alcoholism with an increase mean corpuscular volume. 4. Reactive thrombocytosis. 5. Mild hyperchloremic acidosis. 6. Electrolyte abnormality secondary to malnutrition. 7. Suspected fatty infiltration of his liver with his heavy alcohol use. Recommended that we discontinue telemetry monitoring. Simplify medications, get him ambulatory and get him home. Everything from here forward. I believe can be done through a family/general merchandise manager doctor's office. I have again emphasized the importance of alcoholics anonymous. He says his mother plans to go with him to AA. He can move out of the intermediate care unit in stable for discharge from my standpoint once he is ambulating. Job ID: [id number]
[2018-12-22] MEDS: Amoxicillin/Potassium Clav 875 MG TAB PO SCH (20:28)
[2018-12-22] MEDS: Famotidine 20 MG TAB PO SCH (20:28)
[2018-12-23] MEDS: Metoprolol Tartrate 25 MG TAB PO SCH (08:00)
[2018-12-23] MEDS: Amoxicillin/Potassium Clav 875 MG TAB PO SCH (08:00)
[2018-12-23] MEDS: Folic Acid 1 MG TAB PO SCH (08:00)
[2018-12-23] MEDS: Thiamine 100 MG TAB PO SCH (08:00)
[2018-12-23] MEDS: Famotidine 20 MG TAB PO SCH (08:01)
[2018-12-23] MEDS: Enoxaparin Sodium 40 MG/0.4 ML SYRINGE SC SCH (08:01)
[2018-12-23] MEDS: Senokot 8.6 MG TAB PO SCH (08:02)
[2018-12-23 11:40] VITALS: BP 132/88; TEMP 99.3
--- NOTE | 2018-12-23 12:35 | DIS ---
DATE OF ADMISSION: 12/09/2018 DATE OF DISCHARGE: 12/23/2018 ADMISSION DIAGNOSES: 1. Acute alcohol withdrawal. 2. Hypokalemia. 3. Hypomagnesemia. 4. Elevated liver enzymes, secondary to alcohol abuse. 5. Microcytic anemia. 6. Thrombocytopenia. 7. Mild rhabdomyolysis. FINAL DIAGNOSES: 1. Severe life-threatening alcohol withdrawal. 2. Delirium tremens. 3. 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 4. Reactive thrombocytosis. 5. Anemia, secondary to alcoholism. 6. Urinary tract infection, secondary to Staphylococcus aureus. 7. Community-acquired pneumonia, secondary to methicillin-sensitive Staphylococcus aureus. 8. Alcohol abuse. CONSULTANTS: 1. Dr. Shelton Goyal, Pulmonary Service. 2. Dr. Corey Adams, Pulmonary Service. 3. Dr. Reinier Blankenship, Infectious Disease Service. 4. Dr. Arturo Rodríguez, Pulmonary Service. HOSPITAL COURSE: The patient is a 33-year-old male who was admitted to the hospital with symptoms of acute alcohol withdrawal and encephalopathy. The patient was drinking for quite some time and stopped and it was felt that his mental condition presented with hallucination and confusion that was related to alcohol withdrawal. He received benzodiazepines in the emergency room, and he got admitted to the CCU. Pulmonary/Critical Care Service was consulted. His hypokalemia and hypomagnesemia were replaced. His alcohol level at the time of admission was 10. White count was 7.6, hemoglobin 13.2, and platelets count was 76, total bilirubin 2.4, magnesium 1.2, CK 1151, troponin 0.018, lipase 41, salicylates less than 8, acetaminophen less than 6. Chest x-ray was negative and CT of the brain was negative. The patient was very agitated with tachycardia up to a rate of 190. He was transferred to critical care and intubated and sedated. Mechanical ventilation was started. On followup chest x-ray, he showed some bilateral perihilar and right upper lobe infiltrates, which were felt to be a pneumonitis versus only pulmonary edema. His urine culture and respiratory culture came back positive for Staphylococcus aureus, methicillin sensitive. The patient was on broad-spectrum antibiotics, and ID, Dr. Blankenship, was consulted. His temperature was elevated up to 103, sedated with dexmedetomidine, lorazepam, propofol, and fentanyl as needed. Subsequently, he was extubated and continued with supportive care. Cardiogram was done and showed probable alcoholic cardiomyopathy with ejection fraction of 40% to 45%. Frequently, he was switched to oral Augmentin twice a day and he was transferred to the medical floor. He gradually improved and today he is able to walk in the hallway. His appetite is fair. He does not have much complaints to offer. PHYSICAL EXAMINATION: VITAL SIGNS: His blood pressure is 141/87, pulse is 101, temperature 98.9, O2 saturation is 92% on room air, his respiratory rate is 18. LUNGS: Clear. HEART: S1 and S2 normal. No S3. No S4. ABDOMEN: Soft, nontender. EXTREMITIES: No clubbing, cyanosis, or edema. DISCHARGE INSTRUCTIONS: He is discharged home with recommendation to stay on regular diet, activities as tolerated. DISPOSITION: Home. HOME MEDICATIONS: 1. Augmentin 875 mg twice a day for 7 days. 2. Lorazepam 0.5 mg 3 times a day as needed. 3. Metoprolol 25 mg twice a day. 4. Thiamine 100 mg once a day. FOLLOWUP: He is going to visit a different unit of alcoholic anonymous in [place]. He is going to follow up with primary care physician in 1 week. The patient was seen and examined before he is discharged. TIME SPENT: Discharge time is more than 30 minutes. Job ID: [id number]
--- NOTE | 2018-12-24 09:28 | PQF ---
[employer] Presenter [employer] ARISTEO Escobar, RUDDY Aicha SCHERER [id number] CLINICAL DOCUMENTATION CLARIFICATION FORM: POST DISCHARGE Addendum to original discharge summary date: ____ Late entry note date: __ Please exercise your independent, professional judgment in responding to the clarification form. Clinical indicators are provided on the bottom of this form for your review Please check appropriate box(es): [ ] Sepsis due to: (Pna, UTI, gangrenous gall bladder, etc.) Due to: [ ] Device (please specify) [ ] Implant [ ] Graft [ ] Infusion [ ] SIRS due to non-infectious process (please specify etiology) [ ] with organ dysfunction [ ] without organ dysfunction [ ] Severe sepsis with acute organ dysfunction of: (Examples: respiratory failure, encephalopathy, acute kidney failure, other) [ ] Septic Shock [ ] Localized infection without sepsis [ ] Other diagnosis [ ] Unable to determine In addition, please specify: Present on Admission (POA): [ ] Yes [ ] No [ ] Unable to determine For continuity of documentation, please document condition throughout progress notes and discharge summary. Thank You. CLINICAL INDICATORS - SIGNS / SYMPTOMS / LABS SEVERE SEPSIS- PN 3/2, 12/13, 12/20 FEVER 103- PN 3/2, 12/16, 12/11 TACHYCARDIA- PN 3/1, 3, 12/22 RISK FACTORS UTI WITH MSSA - PN 3/2, 12/13, 12/14, 12/15, 12/16, 12/17, D/S ACUTE HYPOXIC RESPIRATORY FAILURE- ALL PROGRESS NOTES TREATMENTS: ZOSYN STARTED- PN 12/11 MECHANICAL VENT STARTED ON 12/10 FOR LONGER THAN 96 HOURS- CONULT 12/10 DR. ROOT [employer] Presenter [employer] Win[employer] Viewer (This form is maintained as a part of the permanent medical record) 2014 [employer]. All Rights Reserved [email or web address] [phone] MTDD
== END 2018-12-23 12:43 | disposition home or self-care (01) | DRG 870 ==
LOC: ERS 08:01 → IMCU/EMU 11:39 → CCU 12-10 14:07 → IMCU/EMU 12-17 00:08 → 2SE 12-22 23:44 → T4-A 12-22 23:51
PROVIDERS: ADMIT Internal Medicine; ATTEND Internal Medicine
PROC: 0BH17EZ Insertion of Endotracheal Airway into Trachea, Via Natural or Artificial Opening (ICD-10-PCS; principal; 2018-12-10)
PROC: 5A1955Z Respiratory Ventilation, Greater than 96 Consecutive Hours (ICD-10-PCS; 2018-12-10)
DX: A41.9 Sepsis, unspecified organism (principal); J96.01 Acute respiratory failure with hypoxia; G92 Toxic encephalopathy; F10.231 Alcohol dependence with withdrawal delirium; N39.0 Urinary tract infection, site not specified; I42.6 Alcoholic cardiomyopathy; R65.20 Severe sepsis without septic shock; E87.6 Hypokalemia; E83.42 Hypomagnesemia; D53.9 Nutritional anemia, unspecified; D69.6 Thrombocytopenia, unspecified; E53.9 Vitamin B deficiency, unspecified; T79.6XXA Traumatic ischemia of muscle, initial encounter; W19.XXXA Unspecified fall, initial encounter; R00.0 Tachycardia, unspecified; R50.9 Fever, unspecified; E83.39 Other disorders of phosphorus metabolism; K70.10 Alcoholic hepatitis without ascites; I10 Essential (primary) hypertension; B95.61 Methicillin susceptible Staphylococcus aureus infection as the cause of diseases classified elsewhere; B96.20 Unspecified Escherichia coli [E. coli] as the cause of diseases classified elsewhere; Z87.891 Personal history of nicotine dependence
CPT/HCPCS: 36415; 70450; 71045; 80048; 80053; 80069; 80076; 80307; 81001; 82140; 82533; 82550; 82805; 83690; 83735; 84100; 84443; 84484; 85007; 85025; 85027; 87040; 87070; 87077; 87086; 87186; 87205; 87324; 87449; 93005; 93306; 94002; 94003; 94640; 94760; 96361; 96365; 96366; 96367; 96374; 96375; 96376; J1630; J1650; J2060; J2543; J2700; J2704; J3010; J3370; J3411; J3475; J3480; J3490; J7042; J7050; J7620; S0028

== ENCOUNTER 2021-11-25 09:14 | Inpatient (IN) | payer SELFPAY ==
[~2021-11-25 09:14] MED LIST: Iopamidol 370 76% 100 ML VIAL ONE
[2021-11-25] MEDS ORDERED: Lorazepam 2 MG/ML VIAL ONE ×2 (10:19→12:02)
[2021-11-25 11:28] LABS: Acetaminophen Less than 6.0 mcg/mL (10.0-30.0); Alcohol 42 mg/dL (Less than 10); Lipase 264 U/L (8-78); Magnesium 1.1 mg/dL (1.6-2.6); Salicylate Less than 8.0 mg/dL (15.0-30.0)
[2021-11-25 11:29] LABS: ALT (SGPT) 305 U/L (8-55); AST (SGOT) 574 U/L (5-34); Albumin 3.3 g/dL (3.5-5.0); Alkaline Phosphatase 379 U/L (40-110); Anion Gap 20 mmol/L (10-20); BUN (Urea Nitrogen) 14 mg/dL (8.9-20.6); Bilirubin, Total 5.5 mg/dL (0.2-1.2); Calc. Creatinine Clearance 0 mL/min (70-130); Calcium 7.7 mg/dL (7.8-10.44); Carbon Dioxide 21 mmol/L (22-29); Chloride 94 mmol/L (98-107); Globulin 2.6 g/dL (2.4-3.5); Glucose 75 mg/dL (70-105); Potassium 3.5 mmol/L (3.5-5.1); Protein, Total 5.9 g/dL (6.0-8.3); Sodium 131 mmol/L (136-145)
[2021-11-25 11:38] LABS: #Lymphocytes 0.6 thou/uL (1.20-3.40); #Monocytes 0.5 thou/uL (0.11-0.59); #Neutrophils 7.4 thou/uL (1.40-6.50); %Basophils 0.1 % (0.0-1.0); %Eosinophils 0.1 % (0.0-10.0); %Lymphocytes 7.4 % (21.0-51.0); %Monocytes 5.6 % (0.0-10.0); %Neutrophils 86.7 % (42.0-75.0); Hemoglobin 13.5 g/dL (14.0-18.0); Large Platelets SLIGHT; MDiff Complete? YES; Macrocytosis SLIGHT = 6-15 cells (100X) (0-5/hpf); Mean Corpuscular HGB CONC 33.7 g/dL (32.0-36.0); Mean Corpuscular Hemoglobin 39.2 pg (27.0-31.0); Platelet Count 87 thou/uL (130-400); Platelet Morphology Comment Appears Decreased; Polychromasia SLIGHT = 2-3 cells (100X) (0-2/hpf); Red Blood Cell (RBC) Count 3.45 mill/uL (4.70-6.10); White Blood Cell (WBC) Count 8.5 thou/uL (4.8-10.8)
[2021-11-25 11:59] LABS: CKMB 31.3 ng/mL (0-6.6)
[2021-11-25] MEDS ORDERED: Magnesium 2 GM/50 ML BAG (IN WATER) ONE (12:02)
[2021-11-25] MEDS ORDERED: Metoprolol Tartrate 5 MG/5 ML VIAL ONE (13:02)
[2021-11-25 13:34] LABS: HBCM Index 0.08 S/CO (0-0.79); HBSAg Index 0.24 S/CO (0-0.99); Hep A IgM AB Non-Reactive (NonReactive); Hep A IgM S/CO 0.11 S/CO (0-0.79); Hep B Surf Ag Non-Reactive S/CO (NonReactive); Hep C IgG Ab Non-Reactive (NonReactive); Hep C Index 0.19 S/CO (0-0.79); Hepatitis B Core IgM Abs Non-Reactive (NonReactive)
[2021-11-25 14:51] LABS: Lactic Acid 2.5 mmol/L (0.5-2.2)
[2021-11-25] MEDS ORDERED: Cefepime 2 GM VIAL ONE (15:00)
[2021-11-25] MEDS ORDERED: Acetaminophen 325 MG TAB PO PRN (15:30)
[2021-11-25] MEDS ORDERED: Ondansetron PF 4 MG/2 ML Vial IVP PRN (15:30)
[2021-11-25] MEDS ORDERED: Lorazepam 2 MG/ML VIAL SLOW IVP PRN (15:37)
[2021-11-25] MEDS ORDERED: Magnesium 2 GM/50 ML 2 GM in Premix Bag 1 BAG IVPB SCH (16:00)
[2021-11-25 16:33] LABS: Bilirubin 1+ (Negative); Blood, Urine Negative (Negative); Clarity Clear (Clear); Glucose, Urine (Dipstick) Normal (Negative); Ketone, Urine 10 mg/dL (Negative); Leukocyte Negative Leu/uL (Negative); Nitrite Negative (Negative); Protein, Urine (Dipstick) 70 mg/dL (Neg-Trace); RBC/HPF 0-3 HPF (0-3); Specific Gravity, Urine 1.034 (1.002-1.036); Squamous Epithelial 0-3 HPF (0-3); WBC/HPF 0-3 HPF (0-3)
[2021-11-25 16:35] LABS: Bacteria/HPF 1+ HPF (None Seen)
[2021-11-25 16:56] LABS: SARS-CoV-2 NAA Rapid Test Not Detected (NotDetected)
[2021-11-25 16:57] LABS: Troponin I 0.143 ng/mL (< 0.028)
[2021-11-25 20:01] LABS: Troponin I 0.134 ng/mL (< 0.028)
[2021-11-25] MEDS: Metoprolol Tartrate 25 MG TAB PO SCH (21:08)
[2021-11-25] MEDS: chlordiazePOXIDE HCl 25 MG CAP PO SCH (21:08)
[2021-11-26 00:56] LABS: Legionella Urinary Ag Negative (Negative); Strep pneumo Urine Ag NEGATIVE (NEGATIVE)
[2021-11-26 04:27] LABS: Lactic Acid 2.7 mmol/L (0.5-2.2)
[2021-11-26 04:32] LABS: ALT (SGPT) 244 U/L (8-55); AST (SGOT) 443 U/L (5-34); Albumin 2.8 g/dL (3.5-5.0); Alkaline Phosphatase 317 U/L (40-110); Anion Gap 20 mmol/L (10-20); BUN (Urea Nitrogen) 15 mg/dL (8.9-20.6); Bilirubin, Total 4.9 mg/dL (0.2-1.2); Calc. Creatinine Clearance 178 mL/min (70-130); Calcium 7.3 mg/dL (7.8-10.44); Carbon Dioxide 17 mmol/L (22-29); Chloride 94 mmol/L (98-107); Globulin 2.7 g/dL (2.4-3.5); Glucose 71 mg/dL (70-105); Magnesium 1.6 mg/dL (1.6-2.6); Potassium 3.7 mmol/L (3.5-5.1); Protein, Total 5.5 g/dL (6.0-8.3); Sodium 127 mmol/L (136-145)
[2021-11-26 04:48] LABS: #Lymphocytes 0.8 thou/uL (1.20-3.40); #Monocytes 0.5 thou/uL (0.11-0.59); #Neutrophils 7.1 thou/uL (1.40-6.50); %Eosinophils 0.5 % (0.0-10.0); %Monocytes 5.5 % (0.0-10.0); Hemoglobin 12.7 g/dL (14.0-18.0); MDiff Complete? YES; Macrocytosis MODERATE=16-30 cells (100X) (0-5/hpf); Mean Corpuscular HGB CONC 32.5 g/dL (32.0-36.0); Mean Corpuscular Hemoglobin 38.2 pg (27.0-31.0); Mean Platelet Volume 9.8 fL (7.4-10.4); Platelet Count 94 thou/uL (130-400); Platelet Morphology Comment Appears Decreased; RBC Distribution Width 14.1 % (11.5-14.5); Red Blood Cell (RBC) Count 3.32 mill/uL (4.70-6.10); White Blood Cell (WBC) Count 8.3 thou/uL (4.8-10.8)
[2021-11-26] MEDS ORDERED: Furosemide 40 MG/4 ML VIAL SLOW IVP SCH (06:00)
[2021-11-26] MEDS ORDERED: Rocuronium Bromide 10 MG/ML (10ML VIAL) ONE ×2 (07:05→14:55)
[2021-11-26] MEDS ORDERED: Sodium Bicarb 50 MEQ/50 ML Abboject 8.4% SYRINGE ONE (07:05)
[2021-11-26] MEDS ORDERED: EPINEPHrine 1 MG/10 ML Abboject SYRINGE ONE (07:05)
[2021-11-26 07:31] LABS: Actual Bicarbonate (HCO3a) 12.7 mEq/L (22-28); Base Excess (BEa) -24.2 mEq/L (-2.0 to +3.0); Potassium - ABG Lab 4.41 mmol/L (3.70-5.30)
[2021-11-26 07:32] LABS: CO2 Tension 91.2 mmHg (35.0-45.0); O2 Tension (PaO2), arterial 40.2 mmHg (80.0-100.0); Puncture Site RRA; pH, Arterial 6.76 (7.35-7.45)
[2021-11-26 07:48] LABS: Actual Bicarbonate (HCO3a) 7.8 mEq/L (22-28); Analyzer IN Cardio ER; Base Excess (BEa) -21.8 mEq/L (-2.0 to +3.0); CO2 Tension 30.1 mmHg (35.0-45.0); Calcium, Ionized (arterial) 0.99 mmol/L (1.12-1.30); Carboxyhemoglobin (COHb) 0.4 gm% (0.0-3.0); Hemoglobin (Hb) 13.4 g/dL (14.0-18.0); O2 Tension (PaO2), arterial 77.1 mmHg (80.0-100.0); Potassium - ABG Lab 3.97 mmol/L (3.70-5.30)
[2021-11-26 07:50] LABS: Puncture Site RBA; pH, Arterial 7.03 (7.35-7.45)
[2021-11-26 07:51] LABS: ALV-art Gradient 598.275 mmHg (0-20)
[2021-11-26] MEDS ORDERED: ALTEPLASE (TPA) 50 MG/50 ML VIAL IVP SCH (08:00)
[2021-11-26] MEDS: Sodium Bicarb 50 MEQ/50 ML VIAL ONE ×2 (08:11→08:14)
[2021-11-26] MEDS ORDERED: Sodium Bicarb 50 MEQ/50 ML VIAL ONE (08:14)
[2021-11-26] MEDS ORDERED: Norepinephrine 16 MG in Dextrose 5% in Water 234 ML IVPB PRN (08:15)
[2021-11-26] MEDS ORDERED: Sodium Bicarb 50 MEQ/50 ML Abboject 8.4% SYRINGE IVP SCH (08:30)
[2021-11-26] MEDS ORDERED: Sodium Bicarb 50 MEQ/50 ML VIAL IVP SCH (08:45)
[2021-11-26] MEDS ORDERED: FLU VACC QS2021-22(6MOS UP)/PF 60 MCG/0.5 ML SYRINGE IM ONE (09:00)
[2021-11-26] MEDS ORDERED: Folic Acid 1 MG TAB PO SCH (09:00)
[2021-11-26] MEDS ORDERED: Lisinopril 5 MG TAB PO SCH (09:00)
[2021-11-26] MEDS ORDERED: Multivit, Therapeutic 1 TAB PO SCH (09:00)
[2021-11-26] MEDS ORDERED: Thiamine 100 MG TAB PO SCH (09:00)
[2021-11-26] MEDS ORDERED: Electrolyte Replacement Protocol 1 EACH FS ONE (09:16)
[2021-11-26] MEDS ORDERED: DC Sedation Protocol FS ONE (09:16)
[2021-11-26] MEDS ORDERED: Electrolyte Replacement Protocol FS PRN (09:30)
[2021-11-26] MEDS ORDERED: Fentanyl BOLUS 250 ML IVPB PRN (09:30)
[2021-11-26] MEDS ORDERED: Propofol BOLUS 1,000 MG/100 ML VIAL IV PRN (09:30)
[2021-11-26] MEDS ORDERED: fentaNYL Citrate/PF 2,000 MCG in Sodium Chloride 0.9% 60 ML IV SCH (09:30)
[2021-11-26] MEDS ORDERED: Magnesium 2 GM/50 ML 2 GM in Premix Bag 1 BAG IVPB SCH (09:30)
[2021-11-26] MEDS ORDERED: Morphine 4 MG/ML VIAL SLOW IVP PRN (09:30)
[2021-11-26] MEDS: Pantoprazole 40 MG VIAL IVP SCH ×2 (09:36→21:16)
[2021-11-26] MEDS: Propofol 1,000 MG/100 ML VIAL IV PRN (09:46)
[2021-11-26 10:21] LABS: Troponin I 0.124 ng/mL (< 0.028)
[2021-11-26] MEDS ORDERED: Norepinephrine 8 MG/0.9% NS 250 ML IVPB SCH (10:30)
[2021-11-26] MEDS: Sodium Bicarbonate 150 MEQ in Dextrose 5% in Water 1,000 ML IV SCH (10:34)
[2021-11-26] MEDS: Thiamine HCl 200 MG/2 ML VIAL SLOW IVP SCH (10:39)
[2021-11-26] MEDS: Metoprolol Tartrate 25 MG TAB PO SCH (10:47)
[2021-11-26] MEDS: Lorazepam 2 MG/ML VIAL SLOW IVP PRN (13:01)
[2021-11-26] MEDS: chlordiazePOXIDE HCl 25 MG CAP PO SCH ×3 (13:29→21:16)
[2021-11-26] MEDS ORDERED: LEVETIRACETAM IVPB SCH (13:45)
[2021-11-26] MEDS ORDERED: SODIUM CHLORIDE 0.9% IVPB SCH (13:45)
[2021-11-26 14:45] LABS: Actual Bicarbonate (HCO3a) 20.7 mEq/L (22-28); Base Excess (BEa) 0.3 mEq/L (-2.0 to +3.0); Calcium, Ionized (arterial) 0.92 mmol/L (1.12-1.30); Potassium - ABG Lab 3.59 mmol/L (3.70-5.30)
[2021-11-26 14:46] LABS: O2 Tension (PaO2), arterial 59.6 mmHg (80.0-100.0); pH, Arterial 7.55 (7.35-7.45)
[2021-11-26 14:47] LABS: Puncture Site RRA
[2021-11-26] MEDS ORDERED: Vecuronium 10 MG VIAL IV PRN (15:32)
[2021-11-26] MEDS: levETIRAcetam in NS 1,000 MG in Premix Bag 1 BAG IVPB SCH (21:16)
[2021-11-27] MEDS: Propofol 1,000 MG/100 ML VIAL IV PRN ×2 (03:36→15:03)
[2021-11-27] MEDS: Lorazepam 2 MG/ML VIAL SLOW IVP PRN ×2 (03:58→16:15)
[2021-11-27 04:23] LABS: #Lymphocytes 0.9 thou/uL (1.20-3.40); #Monocytes 0.4 thou/uL (0.11-0.59); #Neutrophils 7.1 thou/uL (1.40-6.50); %Basophils 0.2 % (0.0-1.0); %Eosinophils 0.5 % (0.0-10.0); %Lymphocytes 10.3 % (21.0-51.0); %Monocytes 4.5 % (0.0-10.0); %Neutrophils 84.4 % (42.0-75.0); Mean Corpuscular HGB CONC 32.9 g/dL (32.0-36.0); Mean Corpuscular Hemoglobin 38.6 pg (27.0-31.0); Mean Platelet Volume 9.1 fL (7.4-10.4); Platelet Count 104 thou/uL (130-400); RBC Distribution Width 14.2 % (11.5-14.5); Red Blood Cell (RBC) Count 3.36 mill/uL (4.70-6.10); White Blood Cell (WBC) Count 8.5 thou/uL (4.8-10.8)
[2021-11-27 04:57] LABS: ALT (SGPT) 315 U/L (8-55); AST (SGOT) 940 U/L (5-34); Albumin 2.3 g/dL (3.5-5.0); Alkaline Phosphatase 272 U/L (40-110); Anion Gap 14 mmol/L (10-20); BUN (Urea Nitrogen) 23 mg/dL (8.9-20.6); Calc. Creatinine Clearance 104 mL/min (70-130); Calcium 6.6 mg/dL (7.8-10.44); Carbon Dioxide 28 mmol/L (22-29); Chloride 93 mmol/L (98-107); Globulin 2.4 g/dL (2.4-3.5); Glucose 97 mg/dL (70-105); Magnesium 1.9 mg/dL (1.6-2.6); Protein, Total 4.7 g/dL (6.0-8.3); Sodium 132 mmol/L (136-145)
[2021-11-27] MEDS ORDERED: Magnesium 2 GM/50 ML 2 GM in Premix Bag 1 BAG IVPB SCH (05:30)
[2021-11-27] MEDS: Potassium Chloride 20 MEQ in Premix Bag 1 BAG IVPB SCH ×2 (05:52→08:11)
[2021-11-27] MEDS: levETIRAcetam in NS 1,000 MG in Premix Bag 1 BAG IVPB SCH ×2 (08:14→21:34)
[2021-11-27] MEDS: Sodium Bicarbonate 150 MEQ in Dextrose 5% in Water 1,000 ML IV SCH (08:14)
[2021-11-27] MEDS: chlordiazePOXIDE HCl 25 MG CAP PO SCH ×3 (08:14→21:34)
[2021-11-27] MEDS: Pantoprazole 40 MG VIAL IVP SCH ×2 (08:15→21:35)
[2021-11-27 08:39] LABS: INR-International Normal Ratio 1.7; Prothrombin Time 19.8 sec (12.0-14.7)
[2021-11-27] MEDS ORDERED: Sodium Chloride 0.9% 1,000 ML IV SCH (09:00)
[2021-11-27] MEDS: Thiamine HCl 200 MG/2 ML VIAL SLOW IVP SCH (09:12)
[2021-11-27] MEDS ORDERED: Potassium Chloride 20 MEQ TAB PO SCH (09:45)
[2021-11-28] MEDS: Propofol 1,000 MG/100 ML VIAL IV PRN (02:44)
[2021-11-28 04:39] LABS: #Eosinphils 0.1 thou/uL (0.0-0.7); #Lymphocytes 0.8 thou/uL (1.20-3.40); #Monocytes 0.4 thou/uL (0.11-0.59); #Neutrophils 6.2 thou/uL (1.40-6.50); %Basophils 0.3 % (0.0-1.0); %Eosinophils 1.5 % (0.0-10.0); %Lymphocytes 10.7 % (21.0-51.0); %Monocytes 5.1 % (0.0-10.0); %Neutrophils 82.5 % (42.0-75.0); Hemoglobin 13.1 g/dL (14.0-18.0); Mean Corpuscular HGB CONC 32.3 g/dL (32.0-36.0); Mean Corpuscular Hemoglobin 37.7 pg (27.0-31.0); Mean Platelet Volume 8.3 fL (7.4-10.4); Platelet Count 141 thou/uL (130-400); RBC Distribution Width 14.3 % (11.5-14.5); Red Blood Cell (RBC) Count 3.46 mill/uL (4.70-6.10); White Blood Cell (WBC) Count 7.6 thou/uL (4.8-10.8)
[2021-11-28 05:49] LABS: ALT (SGPT) 244 U/L (8-55); AST (SGOT) 475 U/L (5-34); Albumin 2.3 g/dL (3.5-5.0); Alkaline Phosphatase 277 U/L (40-110); Anion Gap 16 mmol/L (10-20); BUN (Urea Nitrogen) 21 mg/dL (8.9-20.6); Bilirubin, Total 3.3 mg/dL (0.2-1.2); Calc. Creatinine Clearance 137 mL/min (70-130); Calcium 6.8 mg/dL (7.8-10.44); Carbon Dioxide 26 mmol/L (22-29); Chloride 94 mmol/L (98-107); Globulin 2.5 g/dL (2.4-3.5); Glucose 92 mg/dL (70-105); Magnesium 1.7 mg/dL (1.6-2.6); Protein, Total 4.8 g/dL (6.0-8.3); Sodium 133 mmol/L (136-145)
[2021-11-28 06:00] LABS: Potassium 2.9 mmol/L (3.5-5.1)
[2021-11-28] MEDS: Potassium Chloride 20 MEQ in Premix Bag 1 BAG IVPB SCH ×4 (06:29→15:46)
[2021-11-28] MEDS ORDERED: Magnesium 2 GM/50 ML 2 GM in Premix Bag 1 BAG IVPB SCH (07:00)
[2021-11-28 07:01] LABS: INR-International Normal Ratio 1.3; Prothrombin Time 16.3 sec (12.0-14.7)
[2021-11-28] MEDS: Thiamine HCl 200 MG/2 ML VIAL SLOW IVP SCH (09:40)
[2021-11-28] MEDS: Folic Acid 1 MG TAB PER TUBE SCH (09:40)
[2021-11-28] MEDS: chlordiazePOXIDE HCl 25 MG CAP PO SCH ×3 (09:40→20:47)
[2021-11-28] MEDS: Saccharomyces boulardii 250 MG CAP PER TUBE SCH (09:40)
[2021-11-28] MEDS: levETIRAcetam in NS 1,000 MG in Premix Bag 1 BAG IVPB SCH ×2 (09:41→20:47)
[2021-11-28] MEDS: Pantoprazole 40 MG VIAL IVP SCH ×2 (09:41→20:47)
[2021-11-28 12:21] VITALS: BMI 40.6
[2021-11-29 06:25] LABS: ALT (SGPT) 157 U/L (8-55); AST (SGOT) 227 U/L (5-34); Albumin 2.2 g/dL (3.5-5.0); Alkaline Phosphatase 231 U/L (40-110); Anion Gap 10 mmol/L (10-20); BUN (Urea Nitrogen) 19 mg/dL (8.9-20.6); Bilirubin, Total 2.8 mg/dL (0.2-1.2); Calc. Creatinine Clearance 194 mL/min (70-130); Calcium 6.7 mg/dL (7.8-10.44); Carbon Dioxide 25 mmol/L (22-29); Chloride 99 mmol/L (98-107); Globulin 2.4 g/dL (2.4-3.5); Glucose 95 mg/dL (70-105); Magnesium 1.5 mg/dL (1.6-2.6); Potassium 3.3 mmol/L (3.5-5.1); Protein, Total 4.6 g/dL (6.0-8.3); Sodium 131 mmol/L (136-145)
[2021-11-29 06:32] LABS: INR-International Normal Ratio 1.1; Prothrombin Time 14.5 sec (12.0-14.7)
[2021-11-29] MEDS: Potassium Chloride 20 MEQ in Premix Bag 1 BAG IVPB SCH ×2 (06:43→08:52)
[2021-11-29] MEDS ORDERED: Magnesium 2 GM/50 ML 2 GM in Premix Bag 1 BAG IVPB SCH ×2 (06:45→07:00)
[2021-11-29 06:46] LABS: Band 14 % (5-11); Eosinophils 2 % (0-10); Hemoglobin 12.5 g/dL (14.0-18.0); Lymphocytes 15 % (21-51); MDiff Complete? YES; Mean Corpuscular HGB CONC 32.5 g/dL (32.0-36.0); Mean Corpuscular Hemoglobin 37.3 pg (27.0-31.0); Mean Platelet Volume 7.7 fL (7.4-10.4); Monocytes 9 % (0-10); Neutrophil 60 % (42-75); Platelet Count 140 thou/uL (130-400); RBC Distribution Width 13.9 % (11.5-14.5); Red Blood Cell (RBC) Count 3.34 mill/uL (4.70-6.10); White Blood Cell (WBC) Count 5.3 thou/uL (4.8-10.8)
[2021-11-29] MEDS: levETIRAcetam in NS 1,000 MG in Premix Bag 1 BAG IVPB SCH ×2 (08:52→21:23)
[2021-11-29] MEDS: Folic Acid 1 MG TAB PER TUBE SCH (08:53)
[2021-11-29] MEDS: chlordiazePOXIDE HCl 25 MG CAP PO SCH (08:53)
[2021-11-29] MEDS: Pantoprazole 40 MG VIAL IVP SCH ×2 (08:53→21:23)
[2021-11-29] MEDS: Saccharomyces boulardii 250 MG CAP PER TUBE SCH (08:54)
[2021-11-29] MEDS: Thiamine HCl 200 MG/2 ML VIAL SLOW IVP SCH (09:26)
[2021-11-29] MEDS ORDERED: Furosemide 40 MG/4 ML VIAL SLOW IVP SCH (11:30)
[2021-11-29] MEDS ORDERED: Potassium Bicarbonate/Cit Ac 20 MEQ TAB PO SCH (11:30)
[2021-11-29] MEDS ORDERED: Scopolamine 1.5 mg/72 hour Patch TD SCH (11:30)
[2021-11-29 14:19] VITALS: BP 107/68
[2021-11-29] MEDS ORDERED: Lorazepam 2 MG/ML VIAL SLOW IVP PRN ×2 (17:08→21:08)
[2021-11-29] MEDS ORDERED: Morphine 4 MG/ML VIAL SLOW IVP PRN (17:08)
[2021-11-29] MEDS ORDERED: Heparin 1,000 UNITS/ML VIAL SLOW IVP SCH (21:00)
[2021-11-29] MEDS ORDERED: chlordiazePOXIDE HCl 25 MG CAP PO SCH (21:00)
[2021-11-29] MEDS ORDERED: Piperacillin/Tazobactam 3.375 GM in Sodium Chloride 0.9% 100 ML IVPB SCH (21:00)
[2021-11-29] MEDS ORDERED: Enoxaparin Sodium 40 MG/0.4 ML SYRINGE SC SCH (21:00)
[2021-11-29 21:38] LABS: INR-International Normal Ratio 1.2; PTT 26.8 sec (22.9-36.1); Prothrombin Time 15.2 sec (12.0-14.7)
[2021-11-29] MEDS ORDERED: Heparin 10,000 UNITS/ 10 ML VIAL SLOW IVP SCH (22:00)
[2021-11-29 22:04] LABS: Phosphorus 1.6 mg/dL (2.3-4.7)
[2021-11-29 22:09] LABS: ALT (SGPT) 123 U/L (8-55); AST (SGOT) 148 U/L (5-34); Albumin 2.3 g/dL (3.5-5.0); Alkaline Phosphatase 229 U/L (40-110); Anion Gap 20 mmol/L (10-20); BUN (Urea Nitrogen) 18 mg/dL (8.9-20.6); Bilirubin, Total 2.6 mg/dL (0.2-1.2); Calc. Creatinine Clearance 203 mL/min (70-130); Calcium 6.5 mg/dL (7.8-10.44); Carbon Dioxide 18 mmol/L (22-29); Chloride 100 mmol/L (98-107); Globulin 1.7 g/dL (2.4-3.5); Glucose 103 mg/dL (70-105); Magnesium 1.4 mg/dL (1.6-2.6); Potassium 3.4 mmol/L (3.5-5.1); Sodium 135 mmol/L (136-145)
[2021-11-29] MEDS ORDERED: Potassium Phosphate 15 MMOL in Sodium Chloride 0.9% 100 ML IVPB SCH (22:30)
[2021-11-29 22:41] LABS: Bacteria/HPF None Seen HPF (None Seen); Bilirubin Negative (Negative); Blood, Urine Negative (Negative); Clarity Clear (Clear); Glucose, Urine (Dipstick) Normal (Negative); Ketone, Urine Negative (Negative); Leukocyte Negative Leu/uL (Negative); Nitrite Negative (Negative); Protein, Urine (Dipstick) 30 mg/dL (Neg-Trace); RBC/HPF 0-3 HPF (0-3); Specific Gravity, Urine 1.024 (1.002-1.036); Squamous Epithelial None Seen HPF (0-3); Urobilinogen 6 mg/dL (Less than 2); WBC/HPF 0-3 HPF (0-3)
[2021-11-30] MEDS ORDERED: Phenylephrine 40 MG/NS 250 ML 40 MG in Premix Bag 1 BAG IVPB SCH (00:30)
[2021-11-30] MEDS ORDERED: Phenylephrine 0.25% Nasal Spray 15 ML BOT ONE (00:30)
[2021-11-30] MEDS ORDERED: Piperacillin/Tazobactam 3.375 GM in Sodium Chloride 0.9% 100 ML IVPB SCH (01:00)
[2021-11-30 01:13] VITALS: TEMP 100.2
[2021-11-30] MEDS: Morphine 4 MG/ML VIAL SLOW IVP PRN ×7 (03:20→04:50)
[2021-11-30] MEDS ORDERED: Magnesium 2 GM/50 ML 2 GM in Premix Bag 1 BAG IVPB SCH (08:00)
[2021-11-30] MEDS ORDERED: Potassium Chloride 20 MEQ TAB PO SCH (08:00)
== END 2021-11-30 05:24 | disposition expired | DRG 896 ==
LOC: ERS 09:14 → 2NO 15:43 → CCU 11-26 07:37 → T4-A 11-30 06:10
PROVIDERS: ADMIT Hospitalist; ATTEND Internal Medicine
PROC: HZ2ZZZZ Detoxification Services for Substance Abuse Treatment (ICD-10-PCS; principal; 2021-11-25)
PROC: 5A1945Z Respiratory Ventilation, 24-96 Consecutive Hours (ICD-10-PCS; 2021-11-26)
PROC: 3E033XZ Introduction of Vasopressor into Peripheral Vein, Percutaneous Approach (ICD-10-PCS; 2021-11-26)
PROC: 5A12012 Performance of Cardiac Output, Single, Manual (ICD-10-PCS; 2021-11-26)
PROC: 3E03317 Introduction of Other Thrombolytic into Peripheral Vein, Percutaneous Approach (ICD-10-PCS; 2021-11-26)
PROC: 0BH17EZ Insertion of Endotracheal Airway into Trachea, Via Natural or Artificial Opening (ICD-10-PCS; 2021-11-26)
PROC: 03HY32Z Insertion of Monitoring Device into Upper Artery, Percutaneous Approach (ICD-10-PCS; 2021-11-26)
DX: F10.231 Alcohol dependence with withdrawal delirium (principal); J18.9 Pneumonia, unspecified organism; I50.21 Acute systolic (congestive) heart failure; J96.01 Acute respiratory failure with hypoxia; G93.41 Metabolic encephalopathy; K72.00 Acute and subacute hepatic failure without coma; G93.1 Anoxic brain damage, not elsewhere classified; E87.2 Acidosis; I42.0 Dilated cardiomyopathy; I42.6 Alcoholic cardiomyopathy; E87.1 Hypo-osmolality and hyponatremia; I47.2 Ventricular tachycardia; I31.3 Pericardial effusion (noninflammatory); Z66 Do not resuscitate; Z51.5 Encounter for palliative care; Z20.822 Contact with and (suspected) exposure to COVID-19; G43.909 Migraine, unspecified, not intractable, without status migrainosus; J45.909 Unspecified asthma, uncomplicated; F41.9 Anxiety disorder, unspecified; F32.A Depression, unspecified; F12.10 Cannabis abuse, uncomplicated; F17.210 Nicotine dependence, cigarettes, uncomplicated; Y90.2 Blood alcohol level of 40-59 mg/100 ml; R77.8 Other specified abnormalities of plasma proteins; E83.42 Hypomagnesemia; R74.01 Elevation of levels of liver transaminase levels; D53.9 Nutritional anemia, unspecified; D69.6 Thrombocytopenia, unspecified; I11.0 Hypertensive heart disease with heart failure; K74.60 Unspecified cirrhosis of liver; K72.10 Chronic hepatic failure without coma; N35.819 Other urethral stricture, male, unspecified site; K70.10 Alcoholic hepatitis without ascites; R74.8 Abnormal levels of other serum enzymes; G40.901 Epilepsy, unspecified, not intractable, with status epilepticus; I49.8 Other specified cardiac arrhythmias; R57.0 Cardiogenic shock; E87.6 Hypokalemia; I46.8 Cardiac arrest due to other underlying condition; Z78.1 Physical restraint status; Z28.21 Immunization not carried out because of patient refusal; Z88.1 Allergy status to other antibiotic agents; Z79.899 Other long term (current) drug therapy
CPT/HCPCS: 36415; 36416; 36600; 70450; 71045; 71275; 76705; 80053; 80074; 80307; 81001; 81003; 81015; 82140; 82553; 82607; 82746; 82805; 83605; 83690; 83735; 83880; 83930; 83935; 84100; 84300; 84484; 85025; 85379; 85610; 85730; 87040; 87449; 87899; 93005; 93010; 93306; 93970; 94002; 94003; 94760; 95712; 95816; 95819; 95957; 96365; 96367; 96375; 96376; C9113; J0171; J0692; J1644; J1650; J1940; J1953; J1956; J2060; J2270; J2543; J2704; J2997; J3411; J3475; J3480; J3490; J7050; J7070; Q9967; U0002